=== PATIENT | male | born 1950 | race Two or more races ===

== ENCOUNTER → 2019-03-28 11:08 | Outpatient (CLI) | payer MEDICARE, BC | END | disposition home or self-care (01) | LOC: D.LABREF 11:08 | PROVIDERS: ATTEND Orthopaedic Surgery | DX: M16.12 Unilateral primary osteoarthritis, left hip (principal) ==

== ENCOUNTER 2019-04-02 11:36 | Inpatient (IN) | payer MEDICARE, BC ==
[~2019-04-02] VITALS: Ht 177.8 cm; Wt 140.0 kg
[2019-04-16] MEDS ORDERED: PROPECIA1 MG PO (14:18)
[2019-04-16] MEDS ORDERED: FLOMAX0.4 MG PO (14:18)
[2019-04-17 11:47] LABS: BASOPHILS 0.5 % (0-2); EOSINOPHILS 1.2 % (0-7); HEMATOCRIT 40.3 % (42.0-54.0); HEMOGLOBIN 13.9 g/dL (13.5-17.5); IMMATURE GRANULOCYTES 0.2 % (0-5); LYMPHOCYTES 36.2 % (15-50); MCH 31.7 pg (26.0-34.0); MCHC 34.5 g/dL (31.0-37.0); MCV 91.8 fL (80.0-100.0); NEUTROPHILS 52.9 % (40-80); PLATELET COUNT 229 10x3/uL (130-400); RBC 4.39 10x6/uL (4.20-6.10); RDW 12.9 % (11.5-14.5); WBC 9.5 10x3/uL (4.8-10.8)
[2019-04-17 11:59] LABS: CALC OSMOLALITY 279 mosm/kg (275-300); CALCIUM 8.8 mg/dL (8.5-10.1); CHLORIDE - SERUM 106 mmol/L (98-107); GLUCOSE 90 mg/dL (74-106); POTASSIUM - SERUM 4.3 mmol/L (3.5-5.1); SODIUM 139 mmol/L (136-145); UREA NITROGEN 18 mg/dL (7-18); eGFR NON AFRICAN AMERICAN 79 mL/min (90-120)
[2019-04-17 12:16] LABS: APPEARANCE CLEAR (CLEAR); BILIRUBIN NEGATIVE (NEGATIVE); COLOR YELLOW (YELLOW); GLUCOSE NEGATIVE (NEGATIVE); KETONE NEGATIVE (NEGATIVE); NITRITE NEGATIVE (NEGATIVE); PROTEIN NEGATIVE (NEGATIVE); SPECIFIC GRAVITY 1.005 (1.005-1.020); UROBILINOGEN NORMAL (NORMAL)
[2019-04-17 12:21] LABS: APTT 21.5 SECONDS (22.8-39.4); INR 1.12 (0.85-1.17); PROTIME 13.9 SECONDS (11.6-15.0)
[2019-04-23] VITALS (13 sets, daily range): BP systolic 111–135; BP diastolic 66–85; Ht 177.8 cm; Wt 140.0 kg
--- NOTE | 2019-04-23 12:30 | OP ---
PATIENT NAME: DEBORAH CHAVIS MEDICAL RECORD: [id number] :54 LOCATION:D.[facility] [address] ADMISSION DATE:04/23/19 SURGEON: PAUL ANN DO DATE OF OPERATION: 04/23/2019 PROCEDURE PERFORMED: Left total hip arthroplasty, skin tag removal of left upper thigh. POSTOPERATIVE DIAGNOSES: Left upper thigh skin tag and left hip osteoarthritis. POSTOPERATIVE DIAGNOSES: Left upper thigh skin tag and left hip osteoarthritis. INDICATIONS: Mr. Chavis is a 68-year-old male who has had hip pain for quite some time. He has tried all manners of nonoperative treatment for several years to no avail. He was tired of dealing with the pain and wanted something done. I informed him of the risks including infection, bleeding, damage to nerves and vessels, need for further surgery, due to his size he would be at increased risk for infection, and need for further surgery. He was okay with those risks and signed the consent. He had also asked that the skin to be removed due the fact we would be right there and I told him I would do that. SURGEON: Paul Ann DO POLISHER ALUMINUM: Assisted by Bonilla Aguilar, advanced nurse practitioner. I could not have performed this procedure without him. He assisted with retraction and closing. DESCRIPTION OF PROCEDURE: The patient received a block by anesthesia in the preoperative area. He was taken to the operative suite, laid in the supine position, sedated and then intubated, given 2 grams of Ancef preoperatively with 80 mg gentamicin. He was then moved over to the Hulett table and positioned. The left hip was prepped and draped in sterile fashion. The skin tag had been prepped and removed with a pickup and a 10-blade scalpel prior to draping the whole hip and then silver nitrate sticks were used to burn the little bleeding ports in the skin. The hip was then prepped and draped. Timeout was performed, everyone was in agreement of the correct side, site, patient and procedure prior to the skin tag removal and prior to starting the hip. The incision began over the tensor fascia romeo and a careful dissection was made down to the tensor fascia romeo fascia. This was incised and taken anterior to the muscle belly, posteriorly, and then the interval between the rectus was opened. The rectus was taken medially, tensor fascia romeo laterally and then the fascia was removed deeper. The ascending branch of the lateral femoral circumflex was encountered and tied and coagulated with Aquamantys. Then, the hip capsule was exposed. Hohmanns were placed on either side of the femoral neck. The capsule was then opened and tagged and then a neck cut was made. The femoral head was removed. The labrum was removed off the acetabulum as well as the pulvinar was then medialized in the cup and then reamed up to a 58 under fluoroscopy. A 58 cup was impacted into place and fit very well, did not move with pressure of the Hohmann. The liner was then put into place and impacted and seen to be in good position on the x-ray. The femur was then exposed and a cookie cutter and a canal finder was used. We then started broaching from a 4, went to a 10 trial. The 10 seemed a little small and I think we needed to go up to a longer neck than a standard. I then broached to a 14. The 14 stem was placed and trialed with a +3, went to a +6 neck and reduced the hip and had very good motion and was very stable with shucking. X-rays were done and seen to be in good position OPERATIVE REPORT [id number] DEBORAH CHAVIS and near exact equal length of the right hip on AP pelvis. No fractures were seen either. The tag was then removed from the capsule. The capsule was not repaired due to the stability of the hip. Then this was thoroughly irrigated. Vancomycin, tobramycin powder was then placed in the wound and Jb was placed in the wound and then the tensor fascia romeo fascia was closed with #2 Ethibond in a running locking stitch. The skin was then closed with 2-0 Vicryl in an inverted interrupted fashion and 4-0 Monocryl ran on the skin and then a Prevena incisional VAC was placed due to the size of his pannus to get a good seal on the incision. He was then awakened and taken to recovery in stable condition. A bandage was placed over the skin tag site and he was in stable condition. Blood loss was approximately 200 mL. COMPLICATIONS: None. TRANSINT:[id number] Voice Confirmation ID: [id number] DOCUMENT ID: [id number] PAUL ANN DO at 1230 CC: [id number] DICTATION DATE: 04/23/19927 FINISHING MACHINE OPERATOR: 04/23/19 1050 ADM IN [place] [id number] [facility], [facility]
[2019-04-24 01:23] VITALS: BP 112/69
[2019-04-24 04:53] VITALS: BP 120/73
[2019-04-24 07:47] LABS: BASOPHILS 0.1 % (0-2); EOSINOPHILS 0.1 % (0-7); HEMATOCRIT 33.6 % (42.0-54.0); HEMOGLOBIN 11.2 g/dL (13.5-17.5); IMMATURE GRANULOCYTES 0.1 % (0-5); LYMPHOCYTES 17.3 % (15-50); MCH 31.4 pg (26.0-34.0); MCHC 33.3 g/dL (31.0-37.0); MCV 94.1 fL (80.0-100.0); MEAN PLATELET VOLUME 11.6 fL (7.4-10.4); MONOCYTES 10.7 % (2-11); NEUTROPHILS 71.7 % (40-80); PLATELET COUNT 207 10x3/uL (130-400); RBC 3.57 10x6/uL (4.20-6.10); RDW 13.4 % (11.5-14.5); WBC 13.4 10x3/uL (4.8-10.8)
[2019-04-24 07:57] LABS: ALBUMIN 2.9 g/dL (3.4-5.0); ALKALINE PHOSPHATASE 64 U/L (46-116); ALT (SGPT) 20 U/L (10-68); BILIRUBIN - TOTAL 0.33 mg/dL (0.2-1.3); CALC OSMOLALITY 280 mosm/kg (275-300); CARBON DIOXIDE 24.6 mmol/L (21.0-32.0); CHLORIDE - SERUM 106 mmol/L (98-107); CREATININE - SERUM 0.9 mg/dL (0.6-1.3); GLUCOSE 111 mg/dL (74-106); PROTEIN - SERUM 6.4 g/dL (6.4-8.2); SODIUM 140 mmol/L (136-145); UREA NITROGEN 16 mg/dL (7-18); eGFR NON AFRICAN AMERICAN 90 mL/min (90-120)
[2019-04-24 08:49] VITALS: BP 122/73
[2019-04-24] MEDS ORDERED: PROSCAR5 MG PO (11:18)
[2019-04-24 13:23] VITALS: BP 153/73
--- NOTE | 2019-04-24 16:42 | MORECARE ---
CASE MANAGEMENT DISCHARGE SUMMARY PATIENT: DEBORAH PIERCE UNIT: [id number] ADM DATE: 04/23/19 AGE: 68 : 52 SEX: M ROOM/BED: D.2222 AUTHOR: LIT ALEXANDRE PHYSICIAN: REFERRING PHYSICIAN: DANIEL ANN DO DATE OF SERVICE: 04/24/19 Discharge Plan Patient Name: DEBORAH PIERCE Facility: [facility]:[place] : 1950 Planned Disposition: Home Anticipated Discharge Date: Discharge Date: Expected LOS: Initial Reviewer: [email or web address] Initial Review Date: 04/24/2019 Generated: 04/24/19 5:42 pm Patient Name: DEBORAH PIERCE Page 66866 at 1642 All edits/amendments must be made on the electronic document DICTATION DATE: 04/24/191640 NUTRITION AIDE: YULY 04/24/191640 RPT#: [id number] DC DATE: STATUS: ADM IN [facility] [address] [place] [address] END OF REPORT
--- NOTE | 2019-04-24 16:59 | MORECARE ---
CASE MANAGEMENT DISCHARGE SUMMARY PATIENT: DEBORAH PEREA UNIT: [id number] ADM DATE: 04/23/19 AGE: 68 : 52 SEX: M ROOM/BED: D.2222 AUTHOR: LIT ALEXANDRE PHYSICIAN: REFERRING PHYSICIAN: DANIEL ANN DO DATE OF SERVICE: 04/24/19 Discharge Plan Patient Name: DEBORAH PEREA Facility: [facility]:[place] : 1950 Planned Disposition: Home Anticipated Discharge Date: Discharge Date: Expected LOS: Initial Reviewer: [email or web address] Initial Review Date: 04/24/2019 Generated: 04/24/19 5:58 pm Comments DCP- Discharge Planning Updated by [email or web address]: Reanna De Guzman on 04/24/19 3:[address] Patient Name: DEBORAH PEREA Admission Status: Elective Accout number: [id number] Admission Date: 04-23-2019 : 1950 Admission Diagnosis: Attending: DANIEL ANN Current LOS: 1 Anticipated DC Date: Planned Disposition: Home Primary Insurance: MEDICARE A & B Discharge Planning Comments: CM met with patient to discuss discharge planning, he is alone in the room. He states he lives with a 90 year old female friend. States he has a fianc?e (Omaira) that will be assisting him with transportation and private duty care. I discussed the availability of home health, rehab, skilled therapy and DME. He states his plan is to return home. States he is unsure if he will need home health at first, then outpatient therapy. He would like to use [facility] outpatient PT. I will need to see how he does with therapy tomorrow and check recommendation. Dr. Ann's office has ordered a BSC and a walker from [facility], I called [facility] and verified that and they will deliver to his room tonight. CM will continue to follow and assist with discharge planning/needs. Granite Polisher Apprentice: Reanna De Guzman DCPIA - Discharge Planning Initial Assessment Updated by [email or web address]: Reanna De Guzman on 04/24/19 4:50 pm * Is the patient Alert and Oriented? Yes * How many steps to enter\exit or inside your home? 0/0 * PCP Dr. Ross * Pharmacy [facility] on [address] * Preadmission Environment Home with Family * ADLs Partial Dependent * Partial ADLs (Assistance needed) Ambulation * Equipment Cane * List name and contact numbers for known caregivers / representatives who currently or will assist patient after discharge: Anna perea - DTR - [phone] Omaira lewis * Verbal permission to speak to the caregivers and representatives has been obtained from the patient. Yes * Community resources currently utilized None * Additional services required to return to the preadmission environment? Yes * Can the patient safely return to the preadmission environment? Yes * Has this patient been hospitalized within the prior 30 days at any hospital? No Last DP export: 04/24/19 3:42 p Patient Name: DEBORAH PEREA Page 85097 at 1659 All edits/amendments must be made on the electronic document DICTATION DATE: 04/24/191657 PROJECT INTERN: YULY 04/24/191657 RPT#: [id number] DC DATE: STATUS: ADM IN [facility] [address] [place] [address] END OF REPORT
[2019-04-24 17:43] VITALS: BP 133/81
[2019-04-24 20:50] VITALS: BP 114/62
[2019-04-25] VITALS: BP 128/78
[2019-04-25 04:00] VITALS: BP 131/86
[2019-04-25 05:12] LABS: BASOPHILS 0 % (0-2); EOSINOPHILS 0 % (0-7); HEMATOCRIT 29.4 % (42.0-54.0); HEMOGLOBIN 9.3 g/dL (13.5-17.5); IMMATURE GRANULOCYTES 0.4 % (0-5); LYMPHOCYTES 7.3 % (15-50); MCH 28.4 pg (26.0-34.0); MCHC 31.6 g/dL (31.0-37.0); MEAN PLATELET VOLUME 9.8 fL (7.4-10.4); MONOCYTES 7.2 % (2-11); NEUTROPHILS 85.1 % (40-80); PLATELET COUNT 200 10x3/uL (130-400); RBC 3.27 10x6/uL (4.20-6.10); RDW 17.9 % (11.5-14.5); WBC 11.2 10x3/uL (4.8-10.8)
[2019-04-25 05:33] LABS: MCV 89.9 fL (80.0-100.0)
[2019-04-25 05:34] LABS: ALBUMIN 2.6 g/dL (3.4-5.0); ALKALINE PHOSPHATASE 63 U/L (46-116); ALT (SGPT) 19 U/L (10-68); BILIRUBIN - TOTAL 0.42 mg/dL (0.2-1.3); CALC OSMOLALITY 276 mosm/kg (275-300); CARBON DIOXIDE 28.5 mmol/L (21.0-32.0); CHLORIDE - SERUM 106 mmol/L (98-107); CREATININE - SERUM 0.9 mg/dL (0.6-1.3); GLUCOSE 99 mg/dL (74-106); POTASSIUM - SERUM 4.1 mmol/L (3.5-5.1); PROTEIN - SERUM 5.9 g/dL (6.4-8.2); SODIUM 138 mmol/L (136-145); UREA NITROGEN 16 mg/dL (7-18); eGFR NON AFRICAN AMERICAN 90 mL/min (90-120)
[2019-04-25 09:48] VITALS: BP 151/79
[2019-04-25 13:19] VITALS: BP 130/81
[2019-04-25 16:44] VITALS: BP 119/80
[2019-04-25 21:58] VITALS: BP 130/72
[2019-04-26 01:37] VITALS: BP 154/74
[2019-04-26 05:37] VITALS: BP 124/69
[2019-04-26 08:03] LABS: BASOPHILS 0.3 % (0-2); EOSINOPHILS 2.4 % (0-7); HEMATOCRIT 33.5 % (42.0-54.0); IMMATURE GRANULOCYTES 0.2 % (0-5); LYMPHOCYTES 29.3 % (15-50); MCH 31.3 pg (26.0-34.0); MCHC 33.7 g/dL (31.0-37.0); MEAN PLATELET VOLUME 11.9 fL (7.4-10.4); MONOCYTES 9.5 % (2-11); NEUTROPHILS 58.3 % (40-80); PLATELET COUNT 180 10x3/uL (130-400); RBC 3.61 10x6/uL (4.20-6.10); RDW 13.1 % (11.5-14.5); WBC 8.9 10x3/uL (4.8-10.8)
[2019-04-26 08:18] LABS: HEMOGLOBIN 11.3 g/dL (13.5-17.5); MCV 92.8 fL (80.0-100.0)
[2019-04-26 08:27] LABS: ALBUMIN 2.6 g/dL (3.4-5.0); ALKALINE PHOSPHATASE 64 U/L (46-116); ALT (SGPT) 22 U/L (10-68); BILIRUBIN - TOTAL 0.38 mg/dL (0.2-1.3); CALC OSMOLALITY 278 mosm/kg (275-300); CALCIUM 8.2 mg/dL (8.5-10.1); CHLORIDE - SERUM 106 mmol/L (98-107); CREATININE - SERUM 0.8 mg/dL (0.6-1.3); GLUCOSE 90 mg/dL (74-106); PROTEIN - SERUM 6.2 g/dL (6.4-8.2); SODIUM 139 mmol/L (136-145); UREA NITROGEN 16 mg/dL (7-18); eGFR NON AFRICAN AMERICAN > 90 mL/min (90-120)
[2019-04-26 09:51] VITALS: BP 139/65
[2019-04-26] MEDS ORDERED: VISTARIL50 MG PO (10:49)
[2019-04-26] MEDS ORDERED: OXYCODONE HCL5 M1 PO (10:49)
[2019-04-26] MEDS ORDERED: KEFLEX500 MG PO (10:49)
[2019-04-26] MEDS ORDERED: ELIQUIS2.5 MG PO (10:50)
[2019-04-26 12:00] VITALS: BP 149/75
--- NOTE | 2019-04-26 12:30 | MORECARE ---
CASE MANAGEMENT DISCHARGE SUMMARY PATIENT: DEBORAH PEREA UNIT: [id number] ADM DATE: 04/23/19 AGE: 68 : 52 SEX: M ROOM/BED: D.2222 AUTHOR: LIT ALEXANDRE PHYSICIAN: REFERRING PHYSICIAN: DANIEL ANN DO DATE OF SERVICE: 04/26/19 Discharge Plan Patient Name: DEBORAH PEREA Facility: [facility]:[place] : 1950 Planned Disposition: Home Anticipated Discharge Date: Discharge Date: Expected LOS: Initial Reviewer: [email or web address] Initial Review Date: 04/24/2019 Generated: 04/26/19 1:30 pm Comments DCP- Discharge Planning Updated by [email or web address]: Reanna Gege on 04/26/19 11:[address] Received orders for discharge. I spoke with Dr. Ann about PT. He wants him to do OP PT. He is aware he has not walked more than 9 ft. I spoke with his physical therapist today and he did much better. He walked 130 feet. He wants to go home and feels this is a safe discharge. He has his walker in the room and BSC has been delivered to his home. I set up OP PT with [facility] for Monday at 10:15 and explained to him to come to the back of [facility]. He states his ride will be here about 4PM. CM will continue to follow and assist with discharge planning/needs. DCP- Discharge Planning Updated by [id number]: Reanna De Guzman on 04/24/19 3:[address] Patient Name: DEBORAH PEREA Admission Status: Elective Accout number: [id number] Admission Date: 04-23-2019 : 1950 Admission Diagnosis: Attending: DANIEL ANN Current LOS: 1 Anticipated DC Date: Planned Disposition: Home Primary Insurance: MEDICARE A & B Discharge Planning Comments: CM met with patient to discuss discharge planning, he is alone in the room. He states he lives with a 90 year old female friend. States he has a fianc?e (Omaira) that will be assisting him with transportation and private duty care. I discussed the availability of home health, rehab, skilled therapy and DME. He states his plan is to return home. States he is unsure if he will need home health at first, then outpatient therapy. He would like to use [facility] outpatient PT. I will need to see how he does with therapy tomorrow and check recommendation. Dr. Ann's office has ordered a BSC and a walker from [facility], I called [facility] and verified that and they will deliver to his room tonight. CM will continue to follow and assist with discharge planning/needs. Front Counter Attendant: Reanna De Guzman DCPIA - Discharge Planning Initial Assessment Updated by [email or web address]: Reanna De Guzman on 04/24/19 4:50 pm * Is the patient Alert and Oriented? Yes * How many steps to enter\exit or inside your home? 0/0 * PCP Dr. Ross * Pharmacy [facility] on [address] * Preadmission Environment Home with Family * ADLs Partial Dependent * Partial ADLs (Assistance needed) Ambulation * Equipment Cane * List name and contact numbers for known caregivers / representatives who currently or will assist patient after discharge: Anna walkernton - R - [phone] Omaira lewis * Verbal permission to speak to the caregivers and representatives has been obtained from the patient. Yes * Community resources currently utilized None * Additional services required to return to the preadmission environment? Yes * Can the patient safely return to the preadmission environment? Yes * Has this patient been hospitalized within the prior 30 days at any hospital? No Coverage Notice Reviewer: [id number] - Reanna De Guzman Notice Issued Date-Time: 04/26/2019 12:18 Notice Type: IM Discharge Notice Notice Delivered To: Family Member Relationship to Patient: Self Residential Field Manager Name: Delivery Method: HAND - Hand Delivered Amry Days: Prior Verbal Notification: Recipient Understood Notice: Yes Recipient Signature: Yes Med Rec Note Co-signed by Attending: Coverage Notice Comment: IMM explained, signed, given, copy placed in MR Last DP export: 04/24/19 3:58 p Patient Name: DEBORAH PEREA Page [phone] at 1230 All edits/amendments must be made on the electronic document DICTATION DATE: 04/26/19 1230 CREATIVE PRODUCER: DM 04/26/19 1230 RPT#: [id number] DC DATE: STATUS: ADM IN [facility] [address] [place] [address] END OF REPORT
== END 2019-04-26 18:25 | disposition home or self-care (01) | DRG 470 ==
LOC: D.SDCHOLD 04-17 10:00 → D.MS 04-23 05:05 → D.SDCHOLD 04-23 05:05 → D.MS 04-23 10:42
PROVIDERS: Family Medicine; ADMIT Orthopaedic Surgery; ATTEND Orthopaedic Surgery
PROC: 0SRB0J9 Replacement of Left Hip Joint with Synthetic Substitute, Cemented, Open Approach (ICD-10-PCS; principal; 2019-04-23 07:00)
DX: M16.12 Unilateral primary osteoarthritis, left hip (principal); D62 Acute posthemorrhagic anemia; Z68.41 Body mass index [BMI] 40.0-44.9, adult; G25.81 Restless legs syndrome; M54.5 Low back pain; E66.9 Obesity, unspecified

== ENCOUNTER 2019-04-28 17:05 | Emergency (ER) | payer MEDICARE, BC ==
[~2019-04-28 17:05] MED LIST: ELIQUIS2.5 MG PO; FLOMAX0.4 MG PO; KEFLEX500 MG PO; OXYCODONE HCL5 M1 PO; PROPECIA1 MG PO; PROSCAR5 MG PO; VISTARIL50 MG PO
[2019-04-28 17:12] VITALS: Ht 177.8 cm
[2019-04-28 20:55] VITALS: BP 145/84
== END 2019-04-28 20:55 | disposition home or self-care (01) ==
LOC: D.ER 17:05
DX: Z48.01 Encounter for change or removal of surgical wound dressing (principal)

== ENCOUNTER → 2019-06-05 10:32 | Outpatient (CLI) | payer MEDICARE, BC ==
[2019-04-28 17:12] VITALS: BMI 44.2
== END | disposition home or self-care (01) ==
LOC: D.MRI 10:32
PROVIDERS: ATTEND Orthopaedic Surgery
DX: M43.16 Spondylolisthesis, lumbar region (principal)

== ENCOUNTER 2020-02-14 20:58 | Emergency (ER) | payer MEDICARE, BC ==
[~2020-02-14] VITALS: Ht 177.8 cm; Wt 138.6 kg
[2020-02-14 21:05] VITALS: Ht 177.8 cm; Wt 138.6 kg
[2020-02-14] MEDS ORDERED: PREDNISONE5 MG PO (21:11)
[2020-02-14] MEDS ORDERED: KEFLEX500 MG PO (22:33)
[2020-02-14 22:48] VITALS: BP 142/82
== END 2020-02-15 | disposition home or self-care (01) ==
LOC: D.ER 20:58
DX: S61.211A Laceration without foreign body of left index finger without damage to nail, initial encounter (principal); S61.213A Laceration without foreign body of left middle finger without damage to nail, initial encounter; W45.8XXA Other foreign body or object entering through skin, initial encounter; Y93.9 Activity, unspecified; Y92.9 Unspecified place or not applicable

== ENCOUNTER 2020-02-23 16:22 | Inpatient (IN) | payer MEDICARE, BC ==
[~2020-02-23] VITALS: Ht 177.8 cm; Wt 138.3 kg
[~2020-02-23 16:22] MED LIST changes: +PREDNISONE5 MG PO
[2020-02-23] MEDS ORDERED: PERCOCET 10-321 EAC1 PO (16:39)
[2020-02-23 17:21] LABS: HEMATOCRIT 44.9 % (42.0-54.0); HEMOGLOBIN 14.7 g/dL (13.5-17.5); LYMPHOCYTES 30.5 % (15-50); MCH 31.3 pg (26.0-34.0); MCHC 32.7 g/dL (31.0-37.0); MCV 95.5 fL (80.0-100.0); MEAN PLATELET VOLUME 10.6 fL (7.4-10.4); NEUTROPHILS 62.5 % (40-80); PLATELET COUNT 206 10x3/uL (130-400); RDW 13.1 % (11.5-14.5); WBC 15.7 10x3/uL (4.8-10.8)
[2020-02-23 17:33] LABS: ANION GAP 9.6 mmol/L (8-16); CALCIUM 8.6 mg/dL (8.5-10.1); CARBON DIOXIDE 29.2 mmol/L (21.0-32.0); CREATININE - SERUM 1.1 mg/dL (0.6-1.3); POTASSIUM - SERUM 4.8 mmol/L (3.5-5.1)
[2020-02-23 17:39] LABS: ALBUMIN 3.3 g/dL (3.4-5.0); BILIRUBIN - TOTAL 0.25 mg/dL (0.2-1.3); PROTEIN - SERUM 6.7 g/dL (6.4-8.2)
--- NOTE | 2020-02-23 18:25 | NUR ---
RECEIVED PT FROM ER. LAYING SUPINE IN BED. CHEF MANAGER IN ROOM OBTAINING VITALS. IV POLE SET UP.
--- NOTE | 2020-02-23 18:38 | NUR ---
DID PT QUICK START. PT HAS PERCOCET WITH HIM. OBTAINED THE BOTTLE FROM THE PATIENT. WILL FILL OUT APPROPRIATE PAPERWORK AND SEND MEDICATION TO THE PHARMACY.
--- NOTE | 2020-02-23 19:00 | NUR ---
BEDSIDE REPORT RECEIVED AND CARE OF PT ASSUMED. PT ARRIVED ON UNIT AT 1834 FROM ER. PROVIDED GOWN FOR PT TO CHANGE.
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
--- NOTE | 2020-02-23 19:42 | NUR ---
STARTED MORPHINE DRIVING SCHOOL INSTRUCTOR PER ORDER WITH 2ND RN WITNESS. PT TEACHING ON USE PROVIDED WITH RETURN DEMONSTRATION.
[2020-02-23 20:01] VITALS: BP 148/79
[2020-02-23 21:43] VITALS: BP 148/79; BMI 43.8
--- NOTE | 2020-02-23 21:56 | NUR ---
ADMISSION ASSESSMENT AND HISTORY COMPLETE.
[2020-02-23] MEDS ORDERED: ULTRAM50 MG PO (21:59)
--- NOTE | 2020-02-23 22:51 | NUR ---
PT C/O PAIN STILL NOT COMPLETELY GONE...EXPLAINED HOW MUCH MORPHINE HE WAS RECEIVING AND THAT HE MAY NOT GET TOTALLY PAIN FREE. WILL CONTINUE TO MONITOR CLOSELY FOR NEEDS.
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
[2020-02-24] VITALS: BP 152/74
[2020-02-24 04:00] VITALS: BP 160/74
[2020-02-24 05:24] LABS: ALBUMIN 2.9 g/dL (3.4-5.0); ALKALINE PHOSPHATASE 48 U/L (30-120); ALT (SGPT) 37 U/L (10-68); BILIRUBIN - TOTAL 0.38 mg/dL (0.2-1.3); CALC OSMOLALITY 281 mosm/kg (275-300); CALCIUM 8.5 mg/dL (8.5-10.1); CARBON DIOXIDE 25.6 mmol/L (21.0-32.0); CHLORIDE - SERUM 107 mmol/L (98-107); GLUCOSE 99 mg/dL (74-106); POTASSIUM - SERUM 4.6 mmol/L (3.5-5.1); PROTEIN - SERUM 6.2 g/dL (6.4-8.2); SODIUM 139 mmol/L (136-145); UREA NITROGEN 23 mg/dL (7-18); eGFR NON AFRICAN AMERICAN 79 mL/min (90-120)
[2020-02-24 05:42] LABS: HEMOGLOBIN 14.1 g/dL (13.5-17.5); LYMPHOCYTES 36.2 % (15-50); MCH 31.4 pg (26.0-34.0); MCHC 32.8 g/dL (31.0-37.0); MCV 95.8 fL (80.0-100.0); MEAN PLATELET VOLUME 10.8 fL (7.4-10.4); NEUTROPHILS 56.1 % (40-80); PLATELET COUNT 199 10x3/uL (130-400); RBC 4.49 10x6/uL (4.20-6.10); RDW 13.3 % (11.5-14.5)
--- NOTE | 2020-02-24 07:48 | NUR ---
PT TEMP IS 101.7 THIS MORNING PER LÍUS SÁNCHEZ, ASKED KIAN TO [facility] FOR ORDERS, NO PRN ON DEC FOR FEVER. CONTINUE WITH PLAN OF CARE
--- NOTE | 2020-02-24 07:56 | NUR ---
RECEIVED CALL BACK FROM [facility] TO ORDER BLOOD CULTURES X2, UA/ CULTURE AND TYLENOL. CONTINUE WITH PLAN OF CARE
[2020-02-24 08:07] VITALS: BP 111/62
--- NOTE | 2020-02-24 08:45 | NUR ---
ASSISTED PT TO RESTROOM, PT STATED HE WAS VERY STRESSED OUT AND UNABLE TO URINATE WHEN STRESSED, PT WAS BLE TO GIVE A SMALL URINE SAMPLE AND STATED HE JUST NEEDED TO RELAX BEFORE HE CAN GO. ALLOWED PT TO STAND AND AMBULATE TO RESTROOM, SHUT DOOR AND PT WAS STILL UNABLE TO GO. PT STATED HE WANTED TO GO AHEAD AND HAVE MRI DONE THEN WILL TRY AGAIN AND STATED HE IS JUST HAVING A HARD TIME GETTING A STREAM GOING, ASSISTED PT TO WC AND SENT URINE SAMPLE TO LAB. WILL CONTINUE WITH PLAN OF CARE
--- NOTE | 2020-02-24 09:36 | NUR ---
I have reviewed this patient and I concur with the Shift Assessment completed by the Licensed Practical Nurse today this shift.
[2020-02-24 09:55] LABS: BILIRUBIN NEGATIVE (NEGATIVE); GLUCOSE NEGATIVE (NEGATIVE); KETONE NEGATIVE (NEGATIVE); NITRITE NEGATIVE (NEGATIVE); SPECIFIC GRAVITY 1.015 (1.005-1.020); UROBILINOGEN NORMAL (NORMAL)
--- NOTE | 2020-02-24 10:00 | NUR ---
RECEIVED PT BACK FROM MRI, RECHECKED PT TEMP BEFORE ADMINISTERING TYLENOL AND PT TEMP UNDER ARM WAS 98.3, DID NOT ADMINISTER TYLENOL, WILL CONTINUE WITH PLAN OF CARE
[2020-02-24 11:50] VITALS: BP 119/71
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
--- NOTE | 2020-02-24 14:53 | NUR ---
PT LYING IN BED, REQUESTED THAT STITCHES IN LEFT HAND ON INDEX AND MIDDLE FINGER BE REMOVED, PT STATED THAT DR PETTY PLACED STITCHES IN FINGERS AND SAID THAT HIS NURSE VALERIE WILL REMOVE TODAY. ADVISED PT THAT I DO NOT HAVE ORDERS TO REMOVE STITCHES BUT WILL ASK DR LUNSFORD WHEN HE MAKES ROUNDS AND WILL REMOVE IF OK'D. NO OTHER NEEDS AT THIS TIME. CONTINUE WITH PLAN OF CARE
[2020-02-24 16:06] VITALS: BP 104/68
--- NOTE | 2020-02-24 19:00 | NUR ---
BEDSIDE REPORT RECEIVED AND CARE OF PT ASSUMED. PT LYING IN SUPINE POSITION TALKING ON THE PHONE. STATES HE IS TRYING TO WAIT LONG POSSIBLE TO PUSH ARMAMENT MECHANIC BUTTON, BUT PAIN IS INCREASING...EDUCATED ON USE OF ARMAMENT MECHANIC WHEN HE HAS PAIN AND TO NOT LET IT BUILD UP. IV TO LEFT HAND PATENT WITH NS INFUSING AT 75 ML/HR. WILL MONITOR FOR NEEDS.
[2020-02-24 19:38] VITALS: BP 153/79
--- NOTE | 2020-02-24 21:51 | NUR ---
RECEIVED ORDER FOR ZOFRAN FOR NAUSEA AND VOMITING...PT VOMITED 200 ML GREEN EMESIS. WILL MONITOR FOR EFFECTIVENESS.
--- NOTE | 2020-02-24 21:56 | NUR ---
CHANGED GOWN DUE TO VOMITING. POSITIONED FOR COMFORT.
[2020-02-25 00:10] VITALS: BP 126/70
--- NOTE | 2020-02-25 00:30 | NUR ---
PT RESTING QUIETLY WITH EYES CLOSED AND EASY RESPIRATIONS. WILL CONTINUE TO MONITOR FOR NEEDS.
[2020-02-25 04:00] VITALS: BP 112/79
--- NOTE | 2020-02-25 05:06 | NUR ---
PT C/O IV IN LEFT HAND BURNING. REMOVED WITH CATHETER TIP INTACT. RE-SITED TO LEFT AC USING 20 GUAGE CATHETER IN ONE STICK. IV FLUIDS AND CLEARANCE CENTER MANAGER RE-STATED.
[2020-02-25 05:37] LABS: ALBUMIN 2.8 g/dL (3.4-5.0); ALKALINE PHOSPHATASE 48 U/L (30-120); ALT (SGPT) 41 U/L (10-68); CALC OSMOLALITY 278 mosm/kg (275-300); CALCIUM 8.1 mg/dL (8.5-10.1); CARBON DIOXIDE 27.7 mmol/L (21.0-32.0); CHLORIDE - SERUM 104 mmol/L (98-107); GLUCOSE 110 mg/dL (74-106); POTASSIUM - SERUM 4.1 mmol/L (3.5-5.1); PROTEIN - SERUM 6.1 g/dL (6.4-8.2); SODIUM 138 mmol/L (136-145); UREA NITROGEN 18 mg/dL (7-18); eGFR NON AFRICAN AMERICAN 79 mL/min (90-120)
[2020-02-25 05:39] LABS: HEMATOCRIT 41.4 % (42.0-54.0); HEMOGLOBIN 13.6 g/dL (13.5-17.5); LYMPHOCYTES 29.3 % (15-50); MCH 31.5 pg (26.0-34.0); MCHC 32.9 g/dL (31.0-37.0); MCV 95.8 fL (80.0-100.0); MEAN PLATELET VOLUME 11.1 fL (7.4-10.4); NEUTROPHILS 61.8 % (40-80); PLATELET COUNT 173 10x3/uL (130-400); RBC 4.32 10x6/uL (4.20-6.10); RDW 12.8 % (11.5-14.5); WBC 11.6 10x3/uL (4.8-10.8)
--- NOTE | 2020-02-25 07:39 | NUR ---
PT LYING IN BED ASLEEP, EASILY AWAKENED FOR ASSESSMENT. PT STATED BACK PAIN IS DULL BUT SHARP AT TIMES UPON MOVEMENT. IV IN RT AC, NS AT 75, PHYSICIAN RECRUITER. IV SITE CDI, LUNGS CTA, PT INQUIRED ON WHEN DR WOULD BE IN AND PLAN OF CARE, INFORMED PT AFTER ASSESSMENT I WILL REVIEW CHART AND UPDATE HIM ON ANY NEW INFORMATION AND PULP ROLLER SHOULD BE IN THIS MORNING AFTER BREAKFAST. NO OTHER NEEDS VOICED AT THIS TIME, CONTINUE WITH PLAN OF CARE
[2020-02-25 09:03] VITALS: BP 139/79
--- NOTE | 2020-02-25 10:12 | NUR ---
PT QUESTIONING WHEN DR ESPINO WILL BE IN TO SEE HIM, REVIEWED CHART AND DR ESPINO WAS CONSULTED YESTERDAY, TOLD PT THAT DR ESPINO SHOULD BE IN TODAY BUT WILL DOUBLE CHECK WITH OTHER DR. NO OTHER NEEDS VOICED CONTINUE WITH PLAN OF CARE
--- NOTE | 2020-02-25 10:52 | NUR ---
I have reviewed this patient and I concur with the Shift Assessment completed by the Licensed Practical Nurse today this shift.
[2020-02-25 12:25] VITALS: BMI 43.7
[2020-02-25 12:48] VITALS: BP 104/73
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
--- NOTE | 2020-02-25 14:47 | MORECARE ---
CASE MANAGEMENT DISCHARGE SUMMARY PATIENT: DEBORAH PIERCE UNIT: [id number] ADM DATE: 02/24/20 AGE: 69 : 52 SEX: M ROOM/BED: D.2235 AUTHOR: LIT ALEXANDRE PHYSICIAN: REFERRING PHYSICIAN: MALI MCDOWELL MD DATE OF SERVICE: 02/25/20 Discharge Plan Patient Name: DEBORAH PIERCE [facility] : 1950 Planned Disposition: Anticipated Discharge Date: Discharge Date: Expected LOS: Initial Reviewer: [email or web address] Initial Review Date: 02/25/2020 Generated: 02/25/20 3:46 pm DCPIA - Discharge Planning Initial Assessment Updated by [email or web address]: Anna Metzger on 02/25/20 2:45 pm * Is the patient Alert and Oriented? Yes * PCP [facility] * Preadmission Environment Home Alone * ADLs Independent * Equipment Walker * List name and contact numbers for known caregivers / representatives who currently or will assist patient after discharge: YOLI ZAMORA, * Community resources currently utilized None * Has this patient been hospitalized within the prior 30 days at any hospital? No Patient Name: DEBORAH PIERCE Page 23267 at 1447 All edits/amendments must be made on the electronic document DICTATION DATE: 02/25/20 144 CLOTH MERCERIZER BACK TENDER: YULY 02/25/20 1446 RPT#: [id number] [place] DATE: STATUS: ADM IN [facility] [address] [place] [address] END OF REPORT
--- NOTE | 2020-02-25 14:57 | MORECARE ---
CASE MANAGEMENT DISCHARGE SUMMARY PATIENT: DEBORAH PIERCE UNIT: [id number] ADM DATE: 02/24/20 AGE: 69 : 52 SEX: M ROOM/BED: D.2235 AUTHOR: LIT ALEXANDRE PHYSICIAN: REFERRING PHYSICIAN: MALI MCDOWELL MD DATE OF SERVICE: 02/25/20 Discharge Plan Patient Name: DEBORAH PIERCE Facility: [facility]:[place] : 1950 Planned Disposition: Anticipated Discharge Date: Discharge Date: Expected LOS: Initial Reviewer: [email or web address] Initial Review Date: 02/25/2020 Generated: 02/25/20 3:56 pm Comments DCP- Discharge Planning Updated by [email or web address]: Anna Metzger on 02/25/20 1:[address] Patient Name: DEBORAH PIERCE Admission Status: ER Accout number: [id number] Admission Date: 02-24-2020 : 1950 Admission Diagnosis: Attending: MALI MCDOWELL Current LOS: 1 Anticipated DC Date: Planned Disposition: Primary Insurance: MEDICARE A & B Discharge Planning Comments: CM met with patient at bedside after explaining CM role and obtaining verbal consent. CM discussed availability / needs of home health, REHAB and medical equipment. PATIENT STATES HE WILL DO WHATEVER THE DOCTOR RECOMMENDS, HH, REHAB OR WHATEVER. STATES PLAN FOR SURGERY MONDAY. I WILL GO BACK AND MEET WITH PATIENT CLOSER TO HI. Storekeeper Engineering: Anna Metzger DCPIA - Discharge Planning Initial Assessment Updated by [email or web address]: Anna Metzger on 02/25/20 2:45 pm * Is the patient Alert and Oriented? Yes * PCP [facility] * Preadmission Environment Home Alone * ADLs Independent * Equipment Walker * List name and contact numbers for known caregivers / representatives who currently or will assist patient after discharge: YOLI ZAMORA, * Community resources currently utilized None * Has this patient been hospitalized within the prior 30 days at any hospital? No Last DP export: 02/25/20 1:47 p Patient Name: DEBORAH PIERCE Page 62599 at 7711 All edits/amendments must be made on the electronic document DICTATION DATE: 02/25/201455 ONLINE EDITOR: YULY 02/25/201455 RPT#: [id number] DC DATE: STATUS: ADM IN [facility] [address] [place] [address] END OF REPORT
[2020-02-25 17:39] VITALS: BP 134/78
--- NOTE | 2020-02-25 19:45 | NUR ---
PT SITTING UP IN BED WITHOUT DISTRESS, AOX4. PROVIDED ICE WATER. STATES GOOD PAIN CONTROL WITH RUG TOUCH UP PAINTER. DENIES OTHER NEEDS AT THIS TIME. CL IN REACH, WILL CTM
[2020-02-25 21:06] VITALS: BP 111/58
[2020-02-26 00:55] VITALS: BP 136/75
[2020-02-26 05:42] LABS: BASOPHILS 0.2 % (0-2); EOSINOPHILS 2.1 % (0-7); HEMATOCRIT 39.9 % (42.0-54.0); HEMOGLOBIN 12.9 g/dL (13.5-17.5); IMMATURE GRANULOCYTES 0.3 % (0-5); LYMPHOCYTES 25.7 % (15-50); MCH 31.5 pg (26.0-34.0); MCHC 32.3 g/dL (31.0-37.0); MCV 97.3 fL (80.0-100.0); MEAN PLATELET VOLUME 10.5 fL (7.4-10.4); MONOCYTES 10.5 % (2-11); NEUTROPHILS 61.2 % (40-80); PLATELET COUNT 170 10x3/uL (130-400); RDW 13.2 % (11.5-14.5); WBC 10.2 10x3/uL (4.8-10.8)
[2020-02-26 06:10] VITALS: BP 122/77
[2020-02-26 06:26] LABS: ALBUMIN 2.6 g/dL (3.4-5.0); ALKALINE PHOSPHATASE 48 U/L (30-120); BILIRUBIN - TOTAL 0.41 mg/dL (0.2-1.3); CALC OSMOLALITY 267 mosm/kg (275-300); CARBON DIOXIDE 26.6 mmol/L (21.0-32.0); CHLORIDE - SERUM 102 mmol/L (98-107); CREATININE - SERUM 0.8 mg/dL (0.6-1.3); GLUCOSE 108 mg/dL (74-106); POTASSIUM - SERUM 3.8 mmol/L (3.5-5.1); PROTEIN - SERUM 5.9 g/dL (6.4-8.2); SODIUM 132 mmol/L (136-145); UREA NITROGEN 17 mg/dL (7-18); eGFR NON AFRICAN AMERICAN > 90 mL/min (90-120)
[2020-02-26 06:30] LABS: ALT (SGPT) 58 U/L (10-68)
--- NOTE | 2020-02-26 07:00 | NUR ---
ALERT AND ORIENTED, RESTING IN BED WITH EYES OPEN. NO C/O PAIN, MORPHINE RECREATIONAL SPECIALIST MANAGING PAIN AT THIS TIME. NO S/S OF ACUTE DISTRESS NOTED. LAMINECTOMY SCHEDULED FOR TODAY. UP WITH ASSIST, WALKER. RIGHT HAND SUTURES. LOVENOX. IV TO LEFT AC, NS INFUSING @ 75ML/HR. SITE PATENT WITHOUT REDNESS OR SWELLING. NPO. DENIES ANY NEEDS AT THIS TIME. CALL LIGHT IN REACH. WILL CONTINUE TO MONITOR.
[2020-02-26 08:00] VITALS: BP 169/90
[2020-02-26 12:00] VITALS: BP 136/59
--- NOTE | 2020-02-26 13:12 | NUR ---
REMOVED SUTURES TO RIGHT HAND, INDEX AND MIDDLE FINGERS. 7 SUTURES IN TOTAL REMOVED FROM FINGERS. PATIENT ASKED TO HAVE BANDAIDS APPLIED TO SITES. APPLIED BANDAIDS. REMOVED PER PHYSICIAN ORDER.
--- NOTE | 2020-02-26 15:15 | NUR ---
I have reviewed this patient and I concur with the Shift Assessment completed by the Licensed Practical Nurse today this shift.
[2020-02-26 16:00] VITALS: BP 123/64
--- NOTE | 2020-02-26 18:21 | NUR ---
ALERT AND ORIENTED, TALKING ON CELL PHONE. NO C/O PAIN. NO S/S OF ACUTE DISTRESS NOTED. DENIES ANY NEEDS AT THIS TIME. CALL LIGHT IN REACH. WILL CONTINUE TO MONITOR.
--- NOTE | 2020-02-26 20:00 | NUR ---
PT SITTING UP IN BED WITHOUT DISTRESS, AOX4. REQUESTING MORPHINE FOR PAIN 05/25. GAVE ORDERED. DENIES OTHER NEEDS. CL IN REACH, WILL CTM
[2020-02-26 21:08] VITALS: BP 150/69
[2020-02-27 01:06] VITALS: BP 147/91
[2020-02-27 05:41] LABS: BASOPHILS 0.1 % (0-2); EOSINOPHILS 2.2 % (0-7); HEMOGLOBIN 12.9 g/dL (13.5-17.5); IMMATURE GRANULOCYTES 0.2 % (0-5); LYMPHOCYTES 20.1 % (15-50); MCH 31.9 pg (26.0-34.0); MCHC 33.1 g/dL (31.0-37.0); MCV 96.3 fL (80.0-100.0); MEAN PLATELET VOLUME 10.8 fL (7.4-10.4); MONOCYTES 11.6 % (2-11); NEUTROPHILS 65.8 % (40-80); PLATELET COUNT 167 10x3/uL (130-400); RBC 4.05 10x6/uL (4.20-6.10); WBC 9.3 10x3/uL (4.8-10.8)
[2020-02-27 06:07] LABS: ALBUMIN 2.6 g/dL (3.4-5.0); ALKALINE PHOSPHATASE 55 U/L (30-120); BILIRUBIN - TOTAL 0.46 mg/dL (0.2-1.3); CALC OSMOLALITY 275 mosm/kg (275-300); CALCIUM 8.2 mg/dL (8.5-10.1); CARBON DIOXIDE 25.4 mmol/L (21.0-32.0); CHLORIDE - SERUM 105 mmol/L (98-107); CREATININE - SERUM 0.9 mg/dL (0.6-1.3); GLUCOSE 111 mg/dL (74-106); POTASSIUM - SERUM 3.9 mmol/L (3.5-5.1); SODIUM 137 mmol/L (136-145); UREA NITROGEN 16 mg/dL (7-18); eGFR NON AFRICAN AMERICAN 89 mL/min (90-120)
[2020-02-27 06:09] LABS: ALT (SGPT) 77 U/L (10-68)
--- NOTE | 2020-02-27 06:50 | NUR ---
ALERT AND ORIENTED, RESTING IN BED WITH EYES OPEN. NO C/O PAIN, MORPHINE LINER WORKER MANAGING PAIN AT THIS TIME. NO S/S OF ACUTE DISTRESS NOTED. UP WTIH ASSIST. IV TO RIGHT HAND, NS INFUSING @ 75ML/HR. SITE PATENT WITHOUT REDNESS OR SWELLING. SCHEDULED FOR A LAMINECTOMY TODAY. DENIES ANY NEEDS AT THIS TIME. CALL LIGHT IN REACH. WILL CONTINUE TO MONITOR.
[2020-02-27 06:58] VITALS: BP 115/79
[2020-02-27 08:00] VITALS: BP 145/90
[2020-02-27 12:00] VITALS: BP 142/86
[2020-02-27 16:18] VITALS: BP 117/73
--- NOTE | 2020-02-27 17:55 | NUR ---
RESTING IN BED WITH EYES CLOSED. RESPIRATIONS EVEN AND UNLABORED. NO S/S OF ACUTE DISTRESS NOTED. CALL LIGHT IN REACH. WILL CONTINUE TO MONITOR.
[2020-02-27 18:00] VITALS: Ht 177.8 cm; Wt 138.3 kg
[2020-02-27 18:19] LABS: T4 THYROXIN - FREE 1.27 ng/dL (0.76-1.46); THYROID STIMULATING HORMONE 1.24 uIU/mL (0.36-3.74)
--- NOTE | 2020-02-27 18:45 | NUR ---
I have reviewed this patient and I concur with the Shift Assessment completed by the Licensed Practical Nurse today this shift.
--- NOTE | 2020-02-27 19:45 | NUR ---
PT LYING IN BED WITHOUT DISTRESS, AOX4. REMINDED PT HE IS NPO AFTER MN, VERBALIZED UNDERSTANDING. DENIES OTHER NEEDS. CL IN REACH, WILL CTM
[2020-02-27 20:00] VITALS: BP 107/74
[2020-02-28] VITALS: BP 125/75
--- NOTE | 2020-02-28 01:00 | NUR ---
IV RIGHT HAND INFILTRATED. NEW 22G IV SITED TO RIGHT HAND X3 ATTEMPTS.
[2020-02-28 04:00] VITALS: BP 109/69
[2020-02-28 05:31] LABS: BASOPHILS 0.1 % (0-2); HEMATOCRIT 41.2 % (42.0-54.0); HEMOGLOBIN 13.5 g/dL (13.5-17.5); IMMATURE GRANULOCYTES 0.3 % (0-5); LYMPHOCYTES 21.6 % (15-50); MCH 31.6 pg (26.0-34.0); MCHC 32.8 g/dL (31.0-37.0); MCV 96.5 fL (80.0-100.0); MEAN PLATELET VOLUME 10.9 fL (7.4-10.4); MONOCYTES 12.1 % (2-11); NEUTROPHILS 62.9 % (40-80); PLATELET COUNT 168 10x3/uL (130-400); RBC 4.27 10x6/uL (4.20-6.10); RDW 13.2 % (11.5-14.5); WBC 9.8 10x3/uL (4.8-10.8)
[2020-02-28 05:47] LABS: ALBUMIN 2.6 g/dL (3.4-5.0); ALKALINE PHOSPHATASE 55 U/L (30-120); ALT (SGPT) 67 U/L (10-68); BILIRUBIN - TOTAL 0.49 mg/dL (0.2-1.3); CALC OSMOLALITY 277 mosm/kg (275-300); CALCIUM 8.3 mg/dL (8.5-10.1); CARBON DIOXIDE 25.1 mmol/L (21.0-32.0); CHLORIDE - SERUM 106 mmol/L (98-107); GLUCOSE 100 mg/dL (74-106); POTASSIUM - SERUM 4.2 mmol/L (3.5-5.1); PROTEIN - SERUM 6.1 g/dL (6.4-8.2); SODIUM 138 mmol/L (136-145); UREA NITROGEN 17 mg/dL (7-18); eGFR NON AFRICAN AMERICAN 79 mL/min (90-120)
[2020-02-28 08:00] VITALS: BP 119/76
--- NOTE | 2020-02-28 08:00 | NUR ---
ALERT AND ORIENTED AND CONTINUED NPO STATUS PENDING SURGERY. IV TO RT. HAND WITH NS INFUSING AT PRESCRIBED RATE WITH NO S/S OF INFECTION/INFILTRATION WITH NUCLEAR CONTROL OPERATOR AT PRESCRIBED SETTING.TELEMETRY INTACT AND DENIES ANY CHEST PAIN OR DISCOMFORT. PATINET CLEARED BY CARDIOLOGY FUR SURGERY. DENIES ANY PAIN OR DISOCMFORT AT THIS TIME.
--- NOTE | 2020-02-28 10:16 | NUR ---
PATIENT ENTERED ROOM HOOKED UP TO MONITORS, EKG SHOWED AFIB. DR ESPINO CAME IN AND CANCELLED SURGERY.PATEINT WAS TAKEN BACK TO MED II ROOM.
[2020-02-28 11:09] LABS: RMSF IGM 0.29 index (0.00-0.89)
--- NOTE | 2020-02-28 12:00 | NUR ---
IV DISCONNECTED WITH PATIENT LEAVING FOR SURGERY AT THIS TIME AND STABLE.
[2020-02-28 13:10] LABS: EHRLICHIA CHAFF IGG Negative (Neg:<1:64); EHRLICHIA CHAFF IGM Negative (Neg:<1:20); HGE IGG TITER Negative (Neg:<1:64); HGE IGM TITER Negative (Neg:<1:20)
[2020-02-28 17:06] VITALS: BP 122/62
--- NOTE | 2020-02-28 17:13 | NUR ---
RETURNED TO ROOM WITH SLIGHT CONFUSION NOTED.DRESSING INTACT TO LUMBAR AND DENIES ANY PAIN AT THIS TIME.
[2020-02-28 20:00] VITALS: BP 110/74
[2020-02-29] VITALS: BP 117/62
[2020-02-29 04:00] VITALS: BP 118/70
[2020-02-29 07:05] LABS: ALBUMIN 2.8 g/dL (3.4-5.0); ALKALINE PHOSPHATASE 57 U/L (30-120); ALT (SGPT) 58 U/L (10-68); BILIRUBIN - TOTAL 0.53 mg/dL (0.2-1.3); CALC OSMOLALITY 273 mosm/kg (275-300); CALCIUM 8.5 mg/dL (8.5-10.1); CARBON DIOXIDE 23.2 mmol/L (21.0-32.0); CHLORIDE - SERUM 105 mmol/L (98-107); GLUCOSE 95 mg/dL (74-106); POTASSIUM - SERUM 4.6 mmol/L (3.5-5.1); SODIUM 136 mmol/L (136-145); UREA NITROGEN 18 mg/dL (7-18)
[2020-02-29 07:09] LABS: CREATININE - SERUM 0.7 mg/dL (0.6-1.3)
[2020-02-29 07:10] LABS: BASOPHILS 0.3 % (0-2); EOSINOPHILS 0.3 % (0-7); HEMATOCRIT 39.7 % (42.0-54.0); HEMOGLOBIN 13.3 g/dL (13.5-17.5); IMMATURE GRANULOCYTES 1.5 % (0-5); LYMPHOCYTES 21.4 % (15-50); MCH 31.7 pg (26.0-34.0); MCHC 33.5 g/dL (31.0-37.0); MCV 94.7 fL (80.0-100.0); MEAN PLATELET VOLUME 11.8 fL (7.4-10.4); MONOCYTES 11.3 % (2-11); NEUTROPHILS 65.2 % (40-80); PLATELET COUNT 145 10x3/uL (130-400); RBC 4.19 10x6/uL (4.20-6.10); RDW 12.9 % (11.5-14.5); eGFR NON AFRICAN AMERICAN > 90 mL/min (90-120)
[2020-02-29 08:28] VITALS: BP 115/69
[2020-02-29 12:24] VITALS: BP 135/89
[2020-02-29 16:07] VITALS: BP 101/67
--- NOTE | 2020-02-29 17:07 | MORECARE ---
CASE MANAGEMENT DISCHARGE SUMMARY PATIENT: DEBORAH PIERCE UNIT: [id number] ADM DATE: 02/24/20 AGE: 69 : 52 SEX: M ROOM/BED: D.2235 AUTHOR: BETTIE,DOC PHYSICIAN: REFERRING PHYSICIAN: MALI MCDOWELL MD DATE OF SERVICE: 02/29/20 Discharge Plan Patient Name: DEBORAH PIERCE Facility: [facility]:[place] : 1950 Planned Disposition: Anticipated Discharge Date: Discharge Date: Expected LOS: Initial Reviewer: [email or web address] Initial Review Date: 02/25/2020 Generated: 02/29/20 6:06 pm Comments DCP- Discharge Planning Updated by [email or web address]: Reanna De Guzman on 02/29/20 4:[address] CM met with patient and Penny Harding in the room concerning discharge planning/needs. He consents to going to inpatient rehab at [facility] prior to returning home. He states he has had [facility] in the past, but will do what the doctor wants. PT notes show the patient needs rehab and patient admits to his knee buckling when he first got home. CM will continue to follow and assist with discharge planning/needs. DCP- Discharge Planning Updated by [email or web address]: Anna Metzger on 02/25/20 1:[address] Patient Name: DEBORAH PIERCE Admission Status: ER Accout number: [id number] Admission Date: 02-24-2020 : 1950 Admission Diagnosis: Attending: MALI MCDOWELL Current LOS: 1 Anticipated DC Date: Planned Disposition: Primary Insurance: MEDICARE A & B Discharge Planning Comments: CM met with patient at bedside after explaining CM role and obtaining verbal consent. CM discussed availability / needs of home health, REHAB and medical equipment. PATIENT STATES HE WILL DO WHATEVER THE DOCTOR RECOMMENDS, HH, REHAB OR WHATEVER. STATES PLAN FOR SURGERY MONDAY. I WILL GO BACK AND MEET WITH PATIENT CLOSER TO [place]. Natural Resource Officer: Anna Metzger DCPIA - Discharge Planning Initial Assessment Updated by [email or web address]: Anna Metzger on 02/25/20 2:45 pm * Is the patient Alert and Oriented? Yes * PCP [facility] * Preadmission Environment Home Alone * ADLs Independent * Equipment Walker * List name and contact numbers for known caregivers / representatives who currently or will assist patient after discharge: YOLI ZAMORA, * Community resources currently utilized None * Has this patient been hospitalized within the prior 30 days at any hospital? No Last DP export: 02/25/20 1:57 p Patient Name: DEBORAH PIERCE Page 21425 at 1707 All edits/amendments must be made on the electronic document DICTATION DATE: 02/29/201705 MILL TENDER: YULY 02/29/201705 RPT#: [id number] DC DATE: STATUS: ADM IN [facility] [address] [place] [address] END OF REPORT
--- NOTE | 2020-02-29 17:09 | NUR ---
NOTIFIED BRENNA OF REHAB CONSULT.
[2020-02-29 20:00] VITALS: BP 129/69
[2020-03-01] VITALS: BP 114/81
[2020-03-01 04:00] VITALS: BP 134/79
[2020-03-01 05:50] LABS: BASOPHILS 0.2 % (0-2); EOSINOPHILS 2.9 % (0-7); HEMOGLOBIN 12.5 g/dL (13.5-17.5); IMMATURE GRANULOCYTES 0.3 % (0-5); LYMPHOCYTES 30.6 % (15-50); MCH 31.4 pg (26.0-34.0); MCHC 32.9 g/dL (31.0-37.0); MCV 95.5 fL (80.0-100.0); MEAN PLATELET VOLUME 10.9 fL (7.4-10.4); MONOCYTES 11.3 % (2-11); NEUTROPHILS 54.7 % (40-80); PLATELET COUNT 148 10x3/uL (130-400); RBC 3.98 10x6/uL (4.20-6.10); RDW 13.1 % (11.5-14.5); WBC 9.7 10x3/uL (4.8-10.8)
[2020-03-01 06:11] LABS: ALBUMIN 2.5 g/dL (3.4-5.0); ALKALINE PHOSPHATASE 55 U/L (30-120); ALT (SGPT) 44 U/L (10-68); BILIRUBIN - TOTAL 0.53 mg/dL (0.2-1.3); CALC OSMOLALITY 280 mosm/kg (275-300); CARBON DIOXIDE 24.6 mmol/L (21.0-32.0); CHLORIDE - SERUM 108 mmol/L (98-107); CREATININE - SERUM 0.7 mg/dL (0.6-1.3); GLUCOSE 100 mg/dL (74-106); POTASSIUM - SERUM 4.3 mmol/L (3.5-5.1); PROTEIN - SERUM 5.6 g/dL (6.4-8.2); SODIUM 139 mmol/L (136-145); UREA NITROGEN 22 mg/dL (7-18); eGFR NON AFRICAN AMERICAN > 90 mL/min (90-120)
--- NOTE | 2020-03-01 08:08 | NUR ---
REHAB PRESCREENING Rehab referral received and chart reviewed. Mr. Chavis is a good candidate for acute inpatient rehab. I will begin his screen and notify case management when approvals are in place. He will then be ready for admission when his physicians feel he is appropriate for discharge. Thank you for this referral! Adry Rendon, INSURANCE PROCESSING CLERK Rehab PD
[2020-03-01 08:42] VITALS: BP 137/92
--- NOTE | 2020-03-01 09:00 | NUR ---
ALERT AND ORIENTED X4. DRESSING INTACT TO LUMBAR ASPECT OF BACK. IV TO RIGHT A/C INFUSING AT PRESCRIBED RATE. TELEMETRY INTACT. NORCO GIVEN FOR 7/10 LOWER BACK PAIN. LUNGS CTA AND HRRR. SCD'S INTACT. ENCOURAGED TO USE CALL LIGHT FOR ASSSIT.
--- NOTE | 2020-03-01 10:30 | NUR ---
PATIENT UP AMBULATING WITH THERAPY WITH IMPROVED STRENGTH AND ENDURANCE.
--- NOTE | 2020-03-01 10:38 | MORECARE ---
CASE MANAGEMENT DISCHARGE SUMMARY PATIENT: DEBORAH PIERCE UNIT: [id number] ADM DATE: 02/24/20 AGE: 69 : 52 SEX: M ROOM/BED: D.2235 AUTHOR: BETTIE,DOC PHYSICIAN: REFERRING PHYSICIAN: MALI MCDOWELL MD DATE OF SERVICE: 03/01/20 Discharge Plan Patient Name: DEBORAH PIERCE Facility: [facility]:[place] : 1950 Planned Disposition: Anticipated Discharge Date: Discharge Date: Expected LOS: Initial Reviewer: [email or web address] Initial Review Date: 02/25/2020 Generated: 03/01/20 11:38 am Comments DCP- Discharge Planning Updated by [email or web address]: Reanna De Guzman on 03/01/20 9:[address] I called Adry (weekend call for inpatient rehab), she is working on patient's rehab screen now, and will accept him today. CM will continue to follow and assist with discharge planning/needs. DCP- Discharge Planning Updated by [email or web address]: Reanna De Guzman on 02/29/20 4:[address] CM met with patient and Penny Harding in the room concerning discharge planning/needs. He consents to going to inpatient rehab at [facility] prior to returning home. He states he has had [facility] in the past, but will do what the doctor wants. PT notes show the patient needs rehab and patient admits to his knee buckling when he first got home. CM will continue to follow and assist with discharge planning/needs. DCP- Discharge Planning Updated by [email or web address]: Anna Metzger on 02/25/20 1:[address] Patient Name: DEBORAH PIERCE Admission Status: ER Accout number: [id number] Admission Date: 02-24-2020 : 1950 Admission Diagnosis: Attending: MALI MCDOWELL Current LOS: 1 Anticipated DC Date: Planned Disposition: Primary Insurance: MEDICARE A & B Discharge Planning Comments: CM met with patient at bedside after explaining CM role and obtaining verbal consent. CM discussed availability / needs of home health, REHAB and medical equipment. PATIENT STATES HE WILL DO WHATEVER THE DOCTOR RECOMMENDS, HH, REHAB OR WHATEVER. STATES PLAN FOR SURGERY THURSDAY. I WILL GO BACK AND MEET WITH PATIENT CLOSER TO [place]. Rice Farmworker: Anna Metzger DCPIA - Discharge Planning Initial Assessment Updated by [email or web address]: Anna Metzger on 02/25/20 2:45 pm * Is the patient Alert and Oriented? Yes * PCP [facility] * Preadmission Environment Home Alone * ADLs Independent * Equipment Walker * List name and contact numbers for known caregivers / representatives who currently or will assist patient after discharge: YOLI ZAMORA, * Community resources currently utilized None * Has this patient been hospitalized within the prior 30 days at any hospital? No Last DP export: 02/29/20 4:07 p Patient Name: DEBORAH PIERCE Page 21982 at 1038 All edits/amendments must be made on the electronic document DICTATION DATE: 03/01/20 1038 BOOM CAT OPERATOR: YULY 03/01/20 1038 RPT#: [id number] [place] DATE: STATUS: ADM IN [facility] [address] [place] [address] END OF REPORT
[2020-03-01] MEDS ORDERED: TUMS PO (10:51)
[2020-03-01] MEDS ORDERED: ACETAMINOPHEN325 MG PO (10:51)
[2020-03-01] MEDS ORDERED: BETAPACE 80 MG80 MG PO (10:51)
[2020-03-01] MEDS ORDERED: Vibramycin 100 MG/D5 IV (10:51)
[2020-03-01] MEDS ORDERED: COLACE100 MG PO (10:51)
[2020-03-01] MEDS ORDERED: PROTONIX40 MG PO (10:51)
[2020-03-01] MEDS ORDERED: FLORAJEN3 CAPS460 MG PO (10:51)
[2020-03-01] MEDS ORDERED: HYDROCODON-ACE1 EA10 PO (10:51)
[2020-03-01] MEDS ORDERED: MIRALAX17 GM PO (10:51)
--- NOTE | 2020-03-01 14:41 | NUR ---
REHAB SCREEN Rehab screen is completed. Room number called to CM. Thank you, Adry Rendon, WOOD CUT ENGRAVER Rehab PD
--- NOTE | 2020-03-01 15:10 | NUR ---
IV S/L AND VERBALIZED UNDERSTANDING OF DISCHARGE INSTRUCTIONS. REPORT CALLED TO REHAB. DRESSING DRY AND INTACT TO LUMBAR. PATIENT STABLE AT DISCHARGE
[2020-03-01 18:07] LABS: AEROBE ID Preliminary report (()); RESULT 1 Gram positive rods (())
--- NOTE | 2020-03-02 07:15 | NUR ---
PATIENT IN ROOM, ANESTHESIA HOOKED HIM UP TO ALL MONITORS, NOTICED IRREGULAR HEART RYTHM AFIB. DR ESPINO CAME IN TO SEE PATIENT AND CANCELED SURGERY DUE TO AFIB.
--- NOTE | 2020-03-02 08:26 | MORECARE ---
CASE MANAGEMENT DISCHARGE SUMMARY PATIENT: DEBORAH PIERCE UNIT: [id number] ADM DATE: 02/24/20 AGE: 69 : 52 SEX: M ROOM/BED: D.2235 AUTHOR: BETTIE,DOC PHYSICIAN: REFERRING PHYSICIAN: MALI MCDOWELL MD DATE OF SERVICE: 03/02/20 Discharge Plan Patient Name: DEBORAH PIERCE Facility: [facility]:[place] : 1950 Planned Disposition: Anticipated Discharge Date: Discharge Date: 03/01/2020 Expected LOS: Initial Reviewer: [email or web address] Initial Review Date: 02/25/2020 Generated: 03/02/20 9:26 am Comments DCP- Discharge Planning Updated by [email or web address]: Reanna De Guzman on 03/01/20 9:[address] I called Adry (weekend call for inpatient rehab), she is working on patient's rehab screen now, and will accept him today. CM will continue to follow and assist with discharge planning/needs. DCP- Discharge Planning Updated by [email or web address]: Reanna De Guzman on 02/29/20 4:[address] CM met with patient and Penny Harding in the room concerning discharge planning/needs. He consents to going to inpatient rehab at [facility] prior to returning home. He states he has had [facility] in the past, but will do what the doctor wants. PT notes show the patient needs rehab and patient admits to his knee buckling when he first got home. CM will continue to follow and assist with discharge planning/needs. DCP- Discharge Planning Updated by [email or web address]: Anna Metzger on 02/25/20 1:[address] Patient Name: DEBORAH PIERCE Admission Status: ER Accout number: [id number] Admission Date: 02-24-2020 : 1950 Admission Diagnosis: Attending: MALI MCDOWELL Current LOS: 1 Anticipated DC Date: Planned Disposition: Primary Insurance: MEDICARE A & B Discharge Planning Comments: CM met with patient at bedside after explaining CM role and obtaining verbal consent. CM discussed availability / needs of home health, REHAB and medical equipment. PATIENT STATES HE WILL DO WHATEVER THE DOCTOR RECOMMENDS, HH, REHAB OR WHATEVER. STATES PLAN FOR SURGERY MONDAY. I WILL GO BACK AND MEET WITH PATIENT CLOSER TO [place]. Stonework Supervisor: Anna Metzger DCPIA - Discharge Planning Initial Assessment Updated by [email or web address]: Anna Domenica on 02/25/20 2:45 pm * Is the patient Alert and Oriented? Yes * PCP [facility] * Preadmission Environment Home Alone * ADLs Independent * Equipment Walker * List name and contact numbers for known caregivers / representatives who currently or will assist patient after discharge: YOLI ZAMORA, * Community resources currently utilized None * Has this patient been hospitalized within the prior 30 days at any hospital? No Last DP export: 03/01/20 9:38 a Patient Name: DEBORHA PIERCE Page [phone] at 0826 All edits/amendments must be made on the electronic document DICTATION DATE: 03/02/20825 ROLL WEIGHER: YULY 03/02/20825 RPT#: [id number] DC DATE:03/01/20 STATUS: DIS IN [facility] [address] [place] [address] END OF REPORT
== END 2020-03-01 15:10 | DRG 519 ==
LOC: D.ER 16:22 → D.MS 17:26 → OBSVTIME 17:53 → D.MS 02-24 11:48
PROVIDERS: Family Medicine; Family Medicine Adult Medicine; Neurological Surgery; ADMIT Internal Medicine Nephrology; ATTEND Internal Medicine Nephrology
PROC: 0SB20ZZ Excision of Lumbar Vertebral Disc, Open Approach (ICD-10-PCS; principal; 2020-02-28 12:00)
DX: M48.061 Spinal stenosis, lumbar region without neurogenic claudication (principal); M48.54XA Collapsed vertebra, not elsewhere classified, thoracic region, initial encounter for fracture; Z68.41 Body mass index [BMI] 40.0-44.9, adult; S33.131A Dislocation of L3/L4 lumbar vertebra, initial encounter; G25.81 Restless legs syndrome; E66.9 Obesity, unspecified

== ENCOUNTER 2020-03-01 15:01 | Inpatient (IN) | payer MEDICARE, BC ==
[~2020-03-01] VITALS: Ht 177.8 cm; Wt 137.9 kg
[~2020-03-01 15:01] MED LIST changes: +ACETAMINOPHEN325 MG PO; +BETAPACE 80 MG80 MG PO; +COLACE100 MG PO; +FLORAJEN3 CAPS460 MG PO; +HYDROCODON-ACE1 EA10 PO; +MIRALAX17 GM PO; +PERCOCET 10-321 EAC1 PO; +PROTONIX40 MG PO; +TUMS PO; +ULTRAM50 MG PO; +Vibramycin 100 MG/D5 IV
--- NOTE | 2020-03-01 15:30 | NUR ---
RECIEVED FROM ACUTE CARE FLOOR PER WC.ORIENTED TO ROOM AND SURROUNDINGS.CL IN REACH.
[2020-03-01 18:19] VITALS: BP 144/83; BMI 43.7
--- NOTE | 2020-03-01 19:15 | NUR ---
ASSISTED TO AND FROM BATHROOM PT TRANSFERRED WITH MODERATE ASSIST WITH WALKER. PT BACK IN BED. CL IN REACH. BM NOTED. BED IN LOW SIDE RAILS X2. RESP EVEN AND UNLABORED. TELEMETRY IN PLACE. A/O X4. LUNGS CLEAR. BOWEL ACTIVE X4. WILL CONTINUE TO MONITOR.
[2020-03-01 20:30] VITALS: BP 123/51
--- NOTE | 2020-03-02 05:04 | NUR ---
I have reviewed this patient and I concur with the Shift Assessment completed by the Licensed Practical Nurse today this shift.
[2020-03-02 07:05] LABS: BASOPHILS 0.4 % (0-2); EOSINOPHILS 3.3 % (0-7); IMMATURE GRANULOCYTES 0.2 % (0-5); LYMPHOCYTES 26.7 % (15-50); MCH 31.5 pg (26.0-34.0); MCHC 32.5 g/dL (31.0-37.0); MCV 96.9 fL (80.0-100.0); MEAN PLATELET VOLUME 10.9 fL (7.4-10.4); MONOCYTES 11.2 % (2-11); NEUTROPHILS 58.2 % (40-80); PLATELET COUNT 138 10x3/uL (130-400); RBC 4.13 10x6/uL (4.20-6.10); WBC 9.5 10x3/uL (4.8-10.8)
[2020-03-02 07:20] LABS: CALC OSMOLALITY 277 mosm/kg (275-300); CALCIUM 8.4 mg/dL (8.5-10.1); CHLORIDE - SERUM 106 mmol/L (98-107); CREATININE - SERUM 0.8 mg/dL (0.6-1.3); GLUCOSE 102 mg/dL (74-106); SODIUM 138 mmol/L (136-145); UREA NITROGEN 17 mg/dL (7-18); eGFR NON AFRICAN AMERICAN > 90 mL/min (90-120)
--- NOTE | 2020-03-02 08:00 | NUR ---
PT RESTING IN BED WITH EYES OPEN CALL LIGHT IN REACH WILL MONITER
--- NOTE | 2020-03-02 11:11 | NUR ---
PATIENT ADMITTED TO REHAB FROM ACUTE FLOOR. [facility] HAS BEEN CHOSEN FOR HOME HEALTH. DR. STEEL IS PATIENT PCP. DME AT HOME IS A ROLLING WALKER. DISCHARGE PLANS ARE FOR HIM TO RETURN HOME. WILL CONTINUE TO FOLLOW WITH PATIENT.
[2020-03-02 13:32] VITALS: Ht 177.8 cm; Wt 137.9 kg
--- NOTE | 2020-03-02 18:46 | NUR ---
PT RESTING IN BED WITH EYES OPEN CALL LIGHT IN REACH NO PROBLEMS WILL MONITER
--- NOTE | 2020-03-02 19:45 | NUR ---
PT IS RESTING IN BED WITH EYES OPEN. ALERT AND ORIENTED X 3. DENIES ACUTE PAIN OR DISCOMFORT AT THIS TIME. NO NEEDS VOICED. PT USES URINAL PRN. TELEMETRY UNIT IS ON AND INTACT. SR'S ARE UP X 2 IN BED. CALL LIGHT AND BEDSIDE TABLE ARE WITHIN EASY REACH.
[2020-03-02 20:07] VITALS: BP 129/82
--- NOTE | 2020-03-02 22:19 | NUR ---
PT IS RESTING QUIETLY IN BED WITH EYES CLOSED. RESPS ARE EVEN AND UNLABORED. NO ACUTE DISTRESS NOTED.
--- NOTE | 2020-03-03 02:14 | NUR ---
PT IS RESTING IN BED WITH EYES CLOSED. NO DISTRESS NOTED. USING URINAL PRN.
--- NOTE | 2020-03-03 04:00 | NUR ---
PT IS RESTING IN BED WITH EYES CLOSED. RESPS ARE EVEN AND UNLABORED. NO ACUTE DISTRESS NOTED.
[2020-03-03 09:07] VITALS: BP 153/69
--- NOTE | 2020-03-03 09:17 | NUR ---
ALERT AND ORIENTED. NO DISTRESS NOTED. CL IN REACH.
--- NOTE | 2020-03-03 09:18 | NUR ---
SHOWER PER OT.
--- NOTE | 2020-03-03 12:24 | NUR ---
NO CHANGE IN ASSESSMENT. EATING LUNCH.
--- NOTE | 2020-03-03 18:26 | NUR ---
NO C/O PAIN. RESTING IN BED. SL R ARM DC'D WITH CATH INTACT, WAS LEAKING. WILL NEED TO BE RESITED.
--- NOTE | 2020-03-03 19:30 | NUR ---
PT LYING IN BED WATCHING TV. CL IN REACH. DENIES NEEDS OR PAIN AT THIS TIME. BED IN LOW SIDE RAILS X2. RESP EVEN AND UNLABORED. A/O X4. LUNGS CLEAR. BOWEL ACTIVE X4. WILL CONTINUE TO MONITOR.
[2020-03-03 20:45] VITALS: BP 140/69
--- NOTE | 2020-03-03 23:03 | NUR ---
STARTED IV LEFT HAND 22G X1 ATTEMPT. FLUSHES AND DRAWS WITHOUT DIFFICULTY. DRESSING INTACT. SWAB CAP IN USE. DATE/TIME/INITIALED. PT TOLERATED WELL.
--- NOTE | 2020-03-03 23:59 | NUR ---
I have reviewed this patient and I concur with the Shift Assessment completed by the Licensed Practical Nurse today this shift.
--- NOTE | 2020-03-04 07:18 | NUR ---
RESTING QUIETLY.CL IN REACH.DENIES NEEDS.
[2020-03-04 07:24] LABS: BASOPHILS 0.4 % (0-2); HEMATOCRIT 38.9 % (42.0-54.0); HEMOGLOBIN 12.8 g/dL (13.5-17.5); IMMATURE GRANULOCYTES 0.2 % (0-5); LYMPHOCYTES 26.3 % (15-50); MCH 31.4 pg (26.0-34.0); MCHC 32.9 g/dL (31.0-37.0); MCV 95.3 fL (80.0-100.0); MEAN PLATELET VOLUME 11.1 fL (7.4-10.4); NEUTROPHILS 59.1 % (40-80); PLATELET COUNT 141 10x3/uL (130-400); RBC 4.08 10x6/uL (4.20-6.10); RDW 12.8 % (11.5-14.5); WBC 9.5 10x3/uL (4.8-10.8)
[2020-03-04 07:37] LABS: CALC OSMOLALITY 278 mosm/kg (275-300); CALCIUM 8.5 mg/dL (8.5-10.1); CARBON DIOXIDE 24.4 mmol/L (21.0-32.0); CHLORIDE - SERUM 107 mmol/L (98-107); CREATININE - SERUM 0.8 mg/dL (0.6-1.3); GLUCOSE 105 mg/dL (74-106); POTASSIUM - SERUM 3.9 mmol/L (3.5-5.1); SODIUM 139 mmol/L (136-145); UREA NITROGEN 15 mg/dL (7-18); eGFR NON AFRICAN AMERICAN > 90 mL/min (90-120)
[2020-03-04 08:00] VITALS: BP 142/80
--- NOTE | 2020-03-04 08:00 | NUR ---
PATIENT IS ALERT/ORIENT. SITTING UP AT THE EDGE OF THE BED TO EAT BREAKFAST. CALL LIGHT WITHIN REACH. VOICES NO NEEDS AT THIS TIME. WILL CONTINUE WITH PLAN OF CARE
--- NOTE | 2020-03-04 08:02 | NUR ---
I have reviewed this patient and I concur with the Shift Assessment completed by the Licensed Practical Nurse today this shift.
--- NOTE | 2020-03-04 10:08 | NUR ---
PATIENT IN REHAB ROOM. WORKING WITH OCCUPATIONAL THERAPIST. DENIES ANY PAIN/DISC AT THIS TIME.
--- NOTE | 2020-03-04 14:05 | NUR ---
CARE TEAM MEETING: PATIENT IS PROGRESSING IN THERAPY. HIS TENATIVE DISCHARGE DATE IS 03/13/20. WILL CONTINUE TO FOLLOW WITH PATIENT.
--- NOTE | 2020-03-04 19:40 | NUR ---
PATIENT RECEIVED LAYING IN BED. C/O ITCHING UNDER LEFT SHOULDER. SKIN TAG OPENED UP FROM SCRATCHING. NO BLOOD. VITAL SIGNS & ASSESSMENT DONE. NO ADVERSE REACTION TO ANTIBIOTIC. BED LOW. CALL LIGHT WITHIN REACH. WILL CONTINUE TO MONITOR.
[2020-03-04 20:00] VITALS: BP 122/74
--- NOTE | 2020-03-05 04:28 | NUR ---
I have reviewed this patient and I concur with the Shift Assessment completed by the Licensed Practical Nurse today this shift.
[2020-03-05 08:00] VITALS: BP 122/79
--- NOTE | 2020-03-05 08:00 | NUR ---
PATIENT IS ALERT/ORIENT. CALL LIGHT WITHIN REACH. VOICES NO NEEDS AT THIS TIME. WILL CONTINUE WITH PLAN OF CARE
--- NOTE | 2020-03-05 11:55 | NUR ---
PATIENT IN REHAB ROOM. WORKING WITH PHYSICAL THERAPIST. DENIES ANY PAIN/DISC AT THIS TIME.
--- NOTE | 2020-03-05 13:37 | NUR ---
PATIENT WORKING WITH OCCUPATIONAL THERAPIST. THERAPIST HELPING PATIENT WITH A SHOWER
--- NOTE | 2020-03-05 15:34 | NUR ---
I have reviewed this patient and I concur with the Shift Assessment completed by the Licensed Practical Nurse today this shift.
--- NOTE | 2020-03-05 19:00 | NUR ---
PT ASLEEP, NO NEEDS NOTED, FALL PRECAUTIONS IN PLACE, FLUIDS/CALL LIGHT WITHIN REACH
[2020-03-05 19:35] VITALS: BP 136/79
--- NOTE | 2020-03-05 20:30 | NUR ---
PT REQUESTED PRN PAIN MED WITH MED PASS
[2020-03-06 07:30] VITALS: BP 130/80
[2020-03-06 07:39] LABS: BASOPHILS 0.4 % (0-2); EOSINOPHILS 4.6 % (0-7); HEMATOCRIT 38.8 % (42.0-54.0); HEMOGLOBIN 12.8 g/dL (13.5-17.5); IMMATURE GRANULOCYTES 0.1 % (0-5); LYMPHOCYTES 31.9 % (15-50); MCH 31.4 pg (26.0-34.0); MCV 95.1 fL (80.0-100.0); MEAN PLATELET VOLUME 11.2 fL (7.4-10.4); MONOCYTES 9.1 % (2-11); NEUTROPHILS 53.9 % (40-80); PLATELET COUNT 152 10x3/uL (130-400); RBC 4.08 10x6/uL (4.20-6.10); RDW 12.7 % (11.5-14.5)
[2020-03-06 07:43] LABS: WBC 7.1 10x3/uL (4.8-10.8)
[2020-03-06 08:05] LABS: CALC OSMOLALITY 276 mosm/kg (275-300); CALCIUM 8.5 mg/dL (8.5-10.1); CARBON DIOXIDE 24.8 mmol/L (21.0-32.0); CHLORIDE - SERUM 106 mmol/L (98-107); CREATININE - SERUM 0.8 mg/dL (0.6-1.3); GLUCOSE 97 mg/dL (74-106); SODIUM 138 mmol/L (136-145); UREA NITROGEN 15 mg/dL (7-18); eGFR NON AFRICAN AMERICAN > 90 mL/min (90-120)
--- NOTE | 2020-03-06 14:03 | NUR ---
Nutrition follow-up: Diet: Regular PO intake 100% all meals Labs reviewed Wt: 303# RDN following.
--- NOTE | 2020-03-06 14:20 | NUR ---
AWAKE.ASSESSMENT COMPLETED,VS TAKEN.DRESSING INTACT TO LUMBAR AREA CLEAN AND DRY.DENIES NEEDS AT PRESENT TIME.WILL CONTINUE WITH CURRENT PLAN OF CARE.CL IN EASY REACH,BED IN LOW POSITION.
--- NOTE | 2020-03-06 19:40 | NUR ---
PT IN BED WET PANTS, CLEANED DRIED AND GAVE CLEAN UNDERWEAR, NO OTHER NEEDS NOTED, FALL PRECAUTIONS IN PLACE, FLUIDS/CALL LIGHT WITHIN REACH
[2020-03-06 23:33] VITALS: BP 130/72
--- NOTE | 2020-03-07 02:41 | NUR ---
PT ASLEEP, RESP UNLABORED, AROUSES EASILY, NO NEEDS NOTED, FLUIDS/CALL LIGHT WITHIN REACH
--- NOTE | 2020-03-07 08:00 | NUR ---
PT RESTING IN BED WITH EYES OPEN CALL LIGHT IN REACH WILL MONITER
[2020-03-07 08:53] VITALS: BP 139/78
--- NOTE | 2020-03-07 12:18 | NUR ---
PT RESTING IN BED WITH EYES OPEN CALL LIGHT IN REACH WILL MONITER
--- NOTE | 2020-03-07 16:07 | NUR ---
RESTING IN BED WATCHING TV, DENIES ANY NEEDS AT THIS TIME, C/L AND FLUIDS IN REACH.
[2020-03-07 20:00] VITALS: BP 112/72
--- NOTE | 2020-03-07 20:00 | NUR ---
PATIENT RECEIVED LAYING ON LOWE. ASSESSMENT & VITAL SIGNS DONE. NO C/O PAIN OR DISTRESS AT THIS TIME. BED LOW. URINAL & CALL LIGHT WITHIN REACH. WILL CONTINUE TO MONITOR.
[2020-03-07 20:05] VITALS: BP 141/78
--- NOTE | 2020-03-07 23:11 | NUR ---
I have reviewed this patient and I concur with the Shift Assessment completed by the Licensed Practical Nurse today this shift.
--- NOTE | 2020-03-08 03:48 | NUR ---
PATIENT AWAKE C/O BEING COLD. PATIENT GIVEN WARM BLANKET. URINAL EMPTIED OF YELLOW COLORED URINE 400 ML. BED LOW. CALL LIGHT & URINALS WITHIN SANTA. WILL CONTINUE TO MONITOR.
[2020-03-08 08:00] VITALS: BP 144/92
--- NOTE | 2020-03-08 09:57 | NUR ---
PATIENT IS ALERT/ORIENT. CALL LIGHT WITHIN REACH. VOICES NO NEEDS AT THIS TIME. WILL CONTINUE WITH PLAN OF CARE
--- NOTE | 2020-03-08 19:30 | NUR ---
PATIENT RECEIVED SITTING UP IN BED. ASSESSMENT & VITAL SIGNS DONE. NO C/O PAIN OR DISTRESS. BED LOW. CALL LIGHT WITHIN REACH. MENU PLACED IN ROOM.WILL CONTINUE TO MOINTOR.
[2020-03-08 19:44] VITALS: BP 133/78
--- NOTE | 2020-03-08 21:40 | NUR ---
PATIENT PAIN MEDICATION EFFECTIVE FOR BACK PAIN. CALL LIGHT & URINAL WITHIN REACH. WILL CONTINUE TO MONITOR.
--- NOTE | 2020-03-09 01:34 | NUR ---
I have reviewed this patient and I concur with the Shift Assessment completed by the Licensed Practical Nurse today this shift.
--- NOTE | 2020-03-09 03:30 | NUR ---
PATIENT EYES CLOSED. RESPIRATIONS 18 & EVEN. BED LOW. CALL LIGHT & URINALS WITHIN REACH. WILL CONTINUE TO MONITOR.
[2020-03-09 07:10] LABS: BASOPHILS 0.3 % (0-2); EOSINOPHILS 3.9 % (0-7); HEMATOCRIT 40.6 % (42.0-54.0); HEMOGLOBIN 13.4 g/dL (13.5-17.5); IMMATURE GRANULOCYTES 0.2 % (0-5); LYMPHOCYTES 40.4 % (15-50); MCH 31.4 pg (26.0-34.0); MCV 95.1 fL (80.0-100.0); MONOCYTES 10.3 % (2-11); NEUTROPHILS 44.9 % (40-80); RBC 4.27 10x6/uL (4.20-6.10); RDW 12.8 % (11.5-14.5); WBC 6.4 10x3/uL (4.8-10.8)
[2020-03-09 07:29] LABS: PLATELET COUNT 184 10x3/uL (130-400)
[2020-03-09 07:35] LABS: CALC OSMOLALITY 279 mosm/kg (275-300); CALCIUM 8.7 mg/dL (8.5-10.1); CARBON DIOXIDE 24.9 mmol/L (21.0-32.0); CHLORIDE - SERUM 105 mmol/L (98-107); CREATININE - SERUM 0.7 mg/dL (0.6-1.3); GLUCOSE 94 mg/dL (74-106); POTASSIUM - SERUM 4.5 mmol/L (3.5-5.1); SODIUM 139 mmol/L (136-145); UREA NITROGEN 18 mg/dL (7-18); eGFR NON AFRICAN AMERICAN > 90 mL/min (90-120)
[2020-03-09 08:00] VITALS: BP 128/92
--- NOTE | 2020-03-09 08:00 | NUR ---
PT IN THERAPY GYM EATING BREAKFAST TOLERATING WELL WILL MONITER
[2020-03-09 19:31] VITALS: BP 137/88
--- NOTE | 2020-03-09 19:49 | NUR ---
PT IS RESTING IN BED WITH EYES OPEN. ALERT AND ORIENTED X 3. DENIES ACUTE PAIN OR DISCOMFORT AT THIS TIME. ONEYDA TO BACK INCISION ARE CDI. NO DRAINAGE NOTED. TELEMETRY UNIT IS ON AND INTACT. SR'S ARE UP X 2 IN BED. CALL LIGHT AND BEDSIDE TABLE ARE WITHIN EASY REACH.
--- NOTE | 2020-03-09 22:08 | NUR ---
PT RESTING IN BED WITH EYES OPEN. NO NEEDS VOICED. USING URINAL PRN.
--- NOTE | 2020-03-09 23:34 | NUR ---
I have reviewed this patient and I concur with the Shift Assessment completed by the Licensed Practical Nurse today this shift.
--- NOTE | 2020-03-10 03:02 | NUR ---
RESTING IN BED WITH EYES CLOSED.
--- NOTE | 2020-03-10 05:59 | NUR ---
PT RESTING IN BED WITH EYES CLOSED. AWOKE EASILY TO VERBAL STIMULI. TOLERATED AM MED WITHOUT DIFFICULTY. NO NEEDS VOICED.
--- NOTE | 2020-03-10 08:00 | NUR ---
SHIFT ASSMT COMPLETED.BREAKFAST GIVEN.
[2020-03-10 08:04] VITALS: BP 113/75
--- NOTE | 2020-03-10 12:00 | NUR ---
SITTING UP IN WC.LUNCH GIVEN.
--- NOTE | 2020-03-10 12:09 | NUR ---
I have reviewed this patient and I concur with the Shift Assessment completed by the Licensed Practical Nurse today this shift.
--- NOTE | 2020-03-10 14:03 | NUR ---
Nutrition follow-up: Diet: low sodium PO Intake 100% of all meals Labs reviewed Wt: 303# +BM RDN following.
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
--- NOTE | 2020-03-10 16:00 | NUR ---
RESTING QUIETLY.CL IN REACH.
--- NOTE | 2020-03-10 19:33 | NUR ---
PT UP TO TOILET, NO NEEDS NOTED, WAIVER, FLUIDS/CALL LIGHT WITHIN REACH
[2020-03-11 02:18] VITALS: BP 106/69
[2020-03-11 07:02] LABS: BASOPHILS 0.4 % (0-2); EOSINOPHILS 3.2 % (0-7); HEMATOCRIT 38.8 % (42.0-54.0); HEMOGLOBIN 12.9 g/dL (13.5-17.5); IMMATURE GRANULOCYTES 0.1 % (0-5); LYMPHOCYTES 38.3 % (15-50); MCH 31.4 pg (26.0-34.0); MCHC 33.2 g/dL (31.0-37.0); MCV 94.4 fL (80.0-100.0); MEAN PLATELET VOLUME 10.8 fL (7.4-10.4); MONOCYTES 8.8 % (2-11); NEUTROPHILS 49.2 % (40-80); PLATELET COUNT 214 10x3/uL (130-400); RBC 4.11 10x6/uL (4.20-6.10); RDW 12.5 % (11.5-14.5)
[2020-03-11 07:14] LABS: CALC OSMOLALITY 275 mosm/kg (275-300); CALCIUM 8.5 mg/dL (8.5-10.1); CARBON DIOXIDE 25.7 mmol/L (21.0-32.0); CHLORIDE - SERUM 104 mmol/L (98-107); CREATININE - SERUM 0.9 mg/dL (0.6-1.3); GLUCOSE 106 mg/dL (74-106); SODIUM 137 mmol/L (136-145); UREA NITROGEN 18 mg/dL (7-18); eGFR NON AFRICAN AMERICAN 89 mL/min (90-120)
[2020-03-11 07:34] VITALS: BP 123/74
[2020-03-11 19:43] VITALS: BP 113/69
--- NOTE | 2020-03-11 23:00 | NUR ---
PT AWOKE C/O PAIN PRN PCT GIVEN
[2020-03-12 08:14] VITALS: BP 97/71
--- NOTE | 2020-03-12 10:03 | NUR ---
LAYING ON BACK IN BED. IS SCHEDULED TO DC TODAY. DENIES NEEDS OR C/O. CALL LIGHT IN REACH
--- NOTE | 2020-03-12 11:26 | NUR ---
PATIENT DISCHARGING HOME TODAY WITH FAMILY. ARRANGED WITH [facility] FOR SN, PT, OT PER PT CHOICE, RIGHT OF CHOICE FORM SIGNED AND WITNESSED. ALL INFORMATION FAXED TO , DR GARLAND AND DR ESPINO TO INCLUDE DISCHARGE ORDER, MED REC AND H&P. F/U APPT'S MADE WITH DR GARLAND AND DR ESPINO FOR 7-10 DAYS. PATIENT DENIES THE NEED FOR ADD'L DME. ROMEL LEE RN CLINICAL LIAISON, REHAB
--- NOTE | 2020-03-12 15:06 | NUR ---
PT DC HOME WITH FAMILY. HE TOOK ALL PERSONAL BELONGINGS WITH HIM. PT AND NURSE COUNTED HIS PERSONAL MEDS THAT WAS KEPT IN PHARMACY AND HE AGREED ALL MEDS WERE PRESENT. HIS NEW MEDS WERE CALLED INTO [facility]. REVIEWED MEDS, DC PLAN AND FOLLOW UP INSTRUCTIONS. HE DENIES QUESTIOSN.
== END 2020-03-12 15:08 | disposition home health service (06) | DRG 552 ==
LOC: D.REHAB 15:01
PROVIDERS: ADMIT Emergency Medicine; ATTEND Emergency Medicine
DX: M48.061 Spinal stenosis, lumbar region without neurogenic claudication (principal); Z68.41 Body mass index [BMI] 40.0-44.9, adult; I48.91 Unspecified atrial fibrillation; M19.90 Unspecified osteoarthritis, unspecified site; R53.1 Weakness; E66.01 Morbid (severe) obesity due to excess calories; G89.29 Other chronic pain; M51.36 Other intervertebral disc degeneration, lumbar region

== ENCOUNTER → 2020-04-02 14:19 | Outpatient (CLI) | payer MEDICARE, BC ==
[2020-03-02 13:32] VITALS: BMI 43.6
== END | disposition home or self-care (01) ==
LOC: D.HCCECHO 14:00
PROVIDERS: ATTEND Internal Medicine Cardiovascular Disease
DX: I10 Essential (primary) hypertension (principal)

== ENCOUNTER 2021-01-15 07:50 | Day surgery (SDC) | payer MEDICARE, BC ==
[2021-01-12 14:21] LABS: BASOPHILS 0.3 % (0-2); EOSINOPHILS 1.5 % (0-7); HEMATOCRIT 41.3 % (42.0-54.0); IMMATURE GRANULOCYTES 0.2 % (0-5); LYMPHOCYTE ABS# 3.25 10x3/uL (1.32-3.57); LYMPHOCYTES 32.5 % (15-50); MCH 32.2 pg (26.0-34.0); MCHC 33.9 g/dL (31.0-37.0); MCV 94.9 fL (80.0-100.0); MEAN PLATELET VOLUME 10.5 fL (7.4-10.4); MONOCYTES 9.1 % (2-11); NEUTROPHIL ABS# 5.63 10x3/uL (1.78-5.38); NEUTROPHILS 56.4 % (40-80); PLATELET COUNT 185 10x3/uL (130-400); RBC 4.35 10x6/uL (4.20-6.10)
[2021-01-12 14:36] LABS: CALC OSMOLALITY 278 mosm/kg (275-300); CALCIUM 8.9 mg/dL (8.5-10.1); CARBON DIOXIDE 25.3 mmol/L (21.0-32.0); CHLORIDE - SERUM 105 mmol/L (98-107); CREATININE - SERUM 0.9 mg/dL (0.6-1.3); GLUCOSE 99 mg/dL (74-106); POTASSIUM - SERUM 4.1 mmol/L (3.5-5.1); SODIUM 138 mmol/L (136-145); UREA NITROGEN 22 mg/dL (7-18); eGFR NON AFRICAN AMERICAN 89 mL/min (90-120)
[2021-01-12 14:47] LABS: APTT 31.6 SECONDS (22.8-39.4); INR 1.2 (0.85-1.17); PROTIME 14.1 SECONDS (11.6-15.0)
[~2021-01-15] VITALS: Ht 177.8 cm; Wt 136.1 kg
[~2021-01-15 07:50] MED LIST changes: +BAYER CHEWABLE81 MG PO; +ELIQUIS5 MG PO; +VITAMIN D-32000 UNIT PO
[2021-01-15 09:37] VITALS: BP 116/60; Ht 177.8 cm; Wt 136.1 kg
--- NOTE | 2021-01-15 20:11 | NUR ---
8670 IV REMOVED AND INSTRUCTIONS GIVEN. ASSISTED WITH GETTING DRESSED.
--- NOTE | 2021-01-16 11:58 | OP ---
PATIENT NAME: DEBORAH CHAVIS MEDICAL RECORD: [id number] :52 LOCATION:[facility] ADMISSION DATE: SURGEON: PAUL ANN DO DATE OF OPERATION: 01/15/2021 PROCEDURE PERFORMED: Labral debridement, rotator cuff repair and distal clavicle excision and subacromial decompression. PREOPERATIVE DIAGNOSES: Massive rotator cuff tear, labral tear, long head of the biceps tendon tear, subacromial impingement, acromioclavicular joint arthritis. POSTOPERATIVE DIAGNOSES: Massive rotator cuff tear, labral tear, long head of the biceps tendon tear, subacromial impingement, acromioclavicular joint arthritis. INDICATIONS: Mr. Chavis is a 70-year-old male who has had right shoulder pain for quite some time. He had an MRI showing the above findings. He wanted something done surgically as he is tired of dealing with the pain. I informed him of the risks and benefits of this including infection, bleeding, damage to nerve or vessels, need for further surgery, continued pain, arthrofibrosis of the shoulder, need for physical therapy, need for further surgery, retear of the tendon and failure of implants and he signed the consent. SURGEON: Paul Ann DO DESCRIPTION OF PROCEDURE: The patient was given block by anesthesia preoperatively. He was taken to the operative suite, laid in the left lateral decubitus position and given 900 mg of clindamycin. The right shoulder was prepped and draped in sterile fashion. A timeout was performed. Everyone was in agreement of the correct side, site, patient and procedure. He was sedated and LMA was placed prior to prepping and draping. After the timeout had been performed, I then attempted to get into the shoulder joint. I could not do it with an 18-gauge spinal needle. I then placed 3 different portals in the posterior aspect. I then ended up making an incision over the anterior for the anterior portal and the lateral portal, making careful dissection down to the acromion in order to find the subacromial space. Once I did that, I did subacromial decompression, distal clavicle excision through the anterior portal and I did an acromioplasty, subacromial decompression. I then went into the shoulder joint from the posterior portal and through the anterior portal came into the joint. I then used the shaver due to the labral debridement of his long head of the biceps tendon was torn prior to this. I then inspected the rotator cuff tendon tear. He had a massive rotator cuff tendon tear that was supraspinatus and infraspinatus. I then took the shoulder and went into the subacromial space again and brought the shaver in from the lateral portal and cleaned up more the bursa. I then made careful dissection down to the tear through the lateral portal bluntly with [place]'s and then appendiceal. I then put in 2 medial row anchors through the tendon with eight sutures and brought it over 2 lateral row repairing it nicely. I then used a large Regeneten implant and stapled it into place over the repair. I then irrigated. Param Burnette, certified surgical sales representative, then closed the portal sites with a 4-0 Monocryl in inverted interrupted fashion and the lateral incision with 2-0 Vicryl in inverted interrupted fashion and 4-0 Monocryl running on the skin. He was then put Dermabond on all the incisions, dressed with Telfa and Tegaderm. He was awakened, put in a sling and taken to recovery in stable condition. OPERATIVE REPORT [id number] DEBORAH CHAVIS ESTIMATED BLOOD LOSS: Minimal. COMPLICATIONS: None. TRANSINT:[id number] Voice Confirmation ID: [id number] DOCUMENT ID: [id number] PAUL ANN DO at 1158 CC: [id number] DICTATION DATE: 01/15/211803 PRACTICAL NURSING FACULTY: 01/16/21 0203 [facility] 01/15/21 [id number] [place] [address]
== END 2021-01-15 18:30 | disposition home or self-care (01) ==
LOC: D.OPS 07:50
PROVIDERS: Anesthesiology; ATTEND Orthopaedic Surgery
DX: M75.101 Unspecified rotator cuff tear or rupture of right shoulder, not specified as traumatic (principal); T14.8XXA Other injury of unspecified body region, initial encounter; S46.111A Strain of muscle, fascia and tendon of long head of biceps, right arm, initial encounter; M19.011 Primary osteoarthritis, right shoulder; M25.811 Other specified joint disorders, right shoulder; X58.XXXA Exposure to other specified factors, initial encounter; I10 Essential (primary) hypertension